=== PATIENT | male | born 1955 | race Caucasian/White ===

== ENCOUNTER 2022-03-21 08:26 | Emergency (ER) | payer OTHER, SELFPAY ==
[2022-03-21 09:25] VITALS: BP 178/89; PULSE 84; RESP 18; TEMP 37.2; O2SAT 95; BMI 25.0
--- NOTE | 2022-03-21 09:45 | ED_ITS ---
HPI - Back Pain/Injury General Chief Complaint: Back Pain/Injury Stated Complaint: Rt Lower Back Pain/Headache with rash Time Seen by Provider: 03/21/22 09:44 Source: patient and EMS Mode of arrival: EMS Limitations: no limitations History of Present Illness HPI Narrative: 66 yo male with history of substance abuse disorder on methadone who presents to the ER for evaluation of right-sided back pain that started 2 or 3 days ago. He reports yesterday he noticed a red, blistering rash that was on his right lower quadrant of his abdomen and on his right flank. It is burning and painful. He thinks he might have MRSA or shingles. MD elicited complaint: back pain Pertinent past history: prior back pain Onset (ago): day(s) (2) Timing: constant Severity: moderate Pain scale (0-10): 7 Quality: burning, aching and tingling Location: right flank and right lower back Radiation: abdomen Exacerbating factors: none Relieving factors: none Associated symptoms: denies other symptoms Work related injury: No Related Data Previous Rx's Medication Instructions Recorded gabapentin 100 mg capsule 100 mg PO BID PRN nerve pain #10 03/21/22 caps ibuprofen 600 mg tablet 600 mg PO Q8H PRN pain #20 tabs 03/21/22 valacyclovir 1 gram tablet 1,000 mg PO Q8H 7 days #21 tabs 03/21/22 Allergies Allergy/AdvReac Type Severity Reaction Status Date / Time No Known Allergies Allergy Verified 03/21/22 09:24 [No Known Allergies*] Review of Systems Review of Systems: Constitutional: No Fever, No Chills ENT/Mouth: No sore throat, No Rhinorrhea, No Swallowing Difficulty Eyes: No Eye Pain Cardiovascular: No Chest Pain, No SOB Gastrointestinal: No Nausea, No Vomiting, No Diarrhea, + abdominal Pain Musculoskeletal: +joint pain, + Myalgias Skin: No Skin Lesions, + rash Neuro: No Weakness, No Numbness, No Dizziness, No Headache Heme/Lymph: No Bruising, No Lymphadenopathy PMFSH Social History Social History Advance Directives: No Physical Exam Vital Signs: Vital Signs: Last Vital Signs Temp 99 F 03/21/22 09:25 Pulse 84 03/21/22 09:25 Resp 18 03/21/22 09:25 BP 178/89 H 03/21/22 09:25 Pulse Ox 95 03/21/22 09:25 O2 Del Method 03/21/22 09:25 BMI result Body Mass Index 25.0 Appearance: Alert. Oriented X3. No acute distress. HEENT: normal inspection CVS: Normal heart rate and rhythm. Pulses normal. Respiratory: No respiratory distress. Skin: Skin warm and dry. Normal skin color. Normal skin turgor. There is a erythematous vesciular & blistering patchy rash on the right middle back, right flank and right lower quadrant of the abdomen in a dermatomal distribution Extremities: normal inspection x4. Neuro: Oriented X 3. No motor deficit. No sensory deficit. ambluates with a cane, antalgic gait, baseline Course Course Course Narrative: 66-year-old male with history of substance abuse disorder on methadone, chronic pain who presents to the ER for evaluation of right-sided back pain that started 2 or 3 days ago, with acute onset of a burning, blistering rash on his right back, right flank and right lower portion of his abdomen. Examination and clinical presentation are consistent with herpes zoster. Will treat with valacyclovir 1000 mg q.8 hours x7 days. Will also give low-dose gabapentin for neuropathy pain. Patient is agreeable with plan. He is asking for his methadone dose, his clinic is open till 30 today. He was advised to go [facility] from here now. His sisters coming to get him and that he will sampler pickup his valacyclovir prescription. He is stable for discharge home. Discharge Plan Discharge Clinical Impression: Shingles Patient Disposition: Home, Self-Care Instructions: Shingles (ED) Additional Instructions: Take the prescribed antiviral medication as directed. Complete the entire course. Take the prescribed gabapentin as needed for nerve pain, this is common pain associated with shingles. If you develop new or worsening symptoms call 911 or come back to the ER for further evaluation. Prescriptions: New valacyclovir 1 gram tablet 1,000 mg PO Q8H 7 Days Qty: 21 0RF ibuprofen 600 mg tablet 600 mg PO Q8H PRN (Reason: pain) Qty: 20 0RF gabapentin 100 mg capsule 100 mg PO BID PRN (Reason: nerve pain) Qty: 10 0RF Interventions: ED Discharge Assessment Last Done: 03/21/22 10:01 Discharge Date/Time: 03/21/22 10:02
[2022-03-21] MEDS: valACYclovir HCL 1,000 MG TABLET 1000 MG PO (09:57)
[2022-03-21] MEDS: Ibuprofen 600 MG TABLET PO (09:57)
== END 2022-03-21 10:02 | disposition home or self-care (01) ==
PROVIDERS: Emergency Provider Emergency Medicine
DX: B02.9 Zoster without complications (principal); M54.50 Low back pain, unspecified; F11.20 Opioid dependence, uncomplicated
CPT/HCPCS: 99283

== ENCOUNTER 2022-06-16 08:40 | Emergency (ER) | payer OTHER, SELFPAY ==
--- NOTE | ~2022-06-16 | CT_ITS ---
EXAMINATION: CT LUMBAR SPINE WITH CONTRAST CLINICAL INFORMATION: Back pain. Left leg weakness. Rule out epidural abscess. COMPARISON: Lumbar spine MRI 04/24/2019. TECHNIQUE: CT of the lumbar spine was performed following the intravenous administration of 85 mL of Omnipaque 350. Multiplanar reformats were rendered and reviewed. This CT examination was performed using dose optimization techniques as appropriate, variously including the following: *Automated exposure control *Adjustment of mA and/or kV according to patient size (this includes techniques or standardized protocols for targeted exams where dose is matched to indication/reason for exam; i.e. extremities or head) *Use of iterative reconstruction technique DLP: 466 mGy-cm FINDINGS: The sequela of prior osteomyelitis is noted at L4-L5 with associated subchondral collapse of both vertebral bodies and ankylosis across the disc space. There is no evidence of acute fracture. Schmorl's nodes are seen at the inferior endplate of L3 and L1. There is severe disc height loss at L5-S1 with remaining disc heights preserved. No gross abnormal enhancement is seen within the spinal canal. No epidural collection is seen. There is no inflammatory stranding or collection within the soft tissues. Atheromatous changes are noted in the abdominal aorta and its branch vessels. There is a lipoma within the right psoas muscle. L1-L2: Disc bulging with facet arthropathy. No spinal canal or neural foraminal stenosis. L2-L3: Disc bulging with facet arthropathy and ligamentum flavum infolding resulting in mild to moderate spinal canal stenosis and subarticular stenosis. Mild neural foraminal stenosis. L3-L4: Disc bulging with facet arthropathy and ligamentum flavum infolding resulting in mild spinal canal stenosis. No significant neural foraminal stenosis. L4-L5: Subchondral collapse with posterior osteophytic ridging which, in combination with facet arthropathy and facet ankylosis results in severe right and moderate to severe left neural foraminal stenosis and moderate to severe spinal canal stenosis with subarticular stenosis. L5-S1: Disc bulging with osteophytic ridging and severe facet arthropathy. Mild spinal canal stenosis with right subarticular stenosis and mild to moderate left and moderate to severe right neural foraminal stenosis. CT/CT lumbar spine w IV con IMPRESSION: 1. Sequela of prior osteomyelitis at L4-L5 with ankylosis across the disc space and subchondral collapse of the vertebral bodies. No evidence of epidural collection. No inflammatory stranding or collection seen within the soft tissues. 2. Multilevel degenerative spondylotic changes resulting in varying degrees of spinal canal and neural foraminal stenosis. Spinal canal stenosis appears moderate to severe at L4-L5.
[2022-06-16 08:42] VITALS: BP 141/84; PULSE 80; RESP 18; TEMP 36.7; O2SAT 95; BMI 24.4
[2022-06-16 12:00] LABS: MANUAL DIFF FLAG NO
[2022-06-16 12:03] LABS: Basophils Percent Auto 0.5 % (0-2); Eosinophils Absolute Auto 0.1 X10*3/uL (0.0-0.4); Eosinophils Percent Auto 0.8 % (0-4); Hematocrit 43.7 % (42.0-52.0); Hemoglobin 13.9 g/dl (14.0-18.0); Imm Gran Abs Auto 0.02 X10*3/uL (0.00-0.03); Imm Gran Pct Auto 0.3 % (0.0-0.4); Lymphocytes Absolute Auto 1.5 X10*3/uL (1.2-4.9); Lymphocytes Percent Auto 19.9 % (20-40); Mean Corpuscular HGB Conc 31.8 g/dl (31.0-36.0); Mean Corpuscular Hemoglobin 25.4 pg (27.0-33.0); Mean Corpuscular Volume 79.9 fL (80.0-98.0); Mean Platelet Volume 10.2 fL (9.4-12.4); Monocytes Absolute Auto 0.7 X10*3/uL (0.1-1.2); Monocytes Percent Auto 9.6 % (2-11); Neutrophils Absolute Auto 5.3 x10*3/uL (2.0-8.3); Neutrophils Percent Auto 68.9 % (45-73); Platelet Count 272 X10*3/uL (160-400); Red Blood Count 5.47 X10*6/uL (4.60-5.80); White Blood Count 7.7 X10*3/uL (4.8-10.8)
[2022-06-16 12:24] LABS: Anion Gap 12 (12-20); Blood Urea Nitrogen 36 mg/dL (9-16); Calcium 9.5 mg/dL (8.4-10.2); Carbon Dioxide 27 mmol/L (22-29); Chloride 103 mmol/L (96-108); Creatinine Clr Calc Pharmacy 71.5; Estimated Glomerular Filt Rate > 60; Glucose Random 90 mg/dL (60-115); Potassium 5.3 mmol/L (3.3-5.1); Sodium 137 mmol/L (135-145)
[2022-06-16 12:35] LABS: COVID-19 Test Negative (Negative); IDNOW Serial# BCCEAD1C
[2022-06-16 12:44] LABS: Erythrocyte Sedimentation Rate 42 MM/HR (0-15)
[2022-06-16] MEDS: iohexoL 350 MG/ML 100 ML INFUS..BTL 85 ML IV (13:02)
[2022-06-16] MEDS: Acetaminophen 325 MG TABLET 650 MG PO (13:56)
[2022-06-16] MEDS: oxyCODONE HCl Immed Release 5 MG TABLET PO (13:56)
[2022-06-16 15:34] LABS: Potassium 4.8 mmol/L (3.3-5.1)
[2022-06-16] MEDS: cefTRIAXone sodium 1 GM in 0.9 % Sodium Chloride 50 ML IV (16:07)
--- NOTE | 2022-06-16 16:33 | PC.NURSE ---
MRI SCREENING FORM DONE AND FAXED
[2022-06-16] MEDS: HYDROmorphone HCl 1 MG/ML SYRINGE IVPUSH (17:54)
--- NOTE | 2022-06-16 18:35 | ED.BACK ---
HPI - Back Pain/Injury General Chief Complaint: Back Pain/Injury <LILLY Wise Last Filed: 06/16/22 18:46> Stated Complaint: Cellulitis? <LILLY Wise Last Filed: 06/16/22 18:46> Time Seen by Provider: 06/16/22 11:01 <LILLY Wise Last Filed: 06/16/22 18:46> History of Present Illness HPI Narrative: Patient complains of escalating back pain over past weeks gradually worsening, and over the last several weeks he has noticed that his left leg feels weaker and pain in tingling or shooting down into his left foot He is an IV daily drug user with a history of osteomyelitis in his back and a questionable history of diskitis He said after being in the hospital for treatment of those entities he came out with lots of pain on the right side and pain shooting into the right foot but over the last several weeks it is now shooting into the left foot He denies any injury he denies any incontinence he has no change to bowel or bladder he denies any fever <LILLY Wise Last Filed: 06/16/22 18:46> Related Data Home Medications: Previous Rx's Medication Instructions Recorded gabapentin 100 mg capsule 100 mg PO BID PRN nerve pain #10 03/21/22 caps ibuprofen 600 mg tablet 600 mg PO Q8H PRN pain #20 tabs 03/21/22 valacyclovir 1 gram tablet 1,000 mg PO Q8H 7 days #21 tabs 03/21/22 <LILLY Wise Last Filed: 06/16/22 18:46> Allergies/Adverse Reactions: Allergies Allergy/AdvReac Type Severity Reaction Status Date / Time No Known Allergies Allergy Verified 03/21/22 09:24 [No Known Allergies*] <LILLY Wise Last Filed: 06/16/22 18:46> Review of Systems Review of Systems: Positive for back pain radiating into both legs with new weakness in the left foot developing over many weeks Negatives are no fever no chills no dizziness weakness no fainting no feeling faint no falling no headache no neck pain no chest pain no shortness of breath no abdominal pain no changes to bowel or bladder no dysuria no incontinence no frequency no skin rash <LILLY Wise Last Filed: 06/16/22 18:46> Yes all other systems are reviewed and are negative <LILLY Wise - Last Filed: 06/16/22 18:46> [facility] Past Medical History Source: nursing notes reviewed <LILLY Wise - Last Filed: 06/16/22 18:46> Social History Social History: Social History Advance Directives: No Advance Directives Information Provided: No <LILLY Wise - Last Filed: 06/16/22 18:46> Physical Exam Vital Signs: Vital Signs: Last Vital Signs Temp 98.0 F 06/16/22 08:42 Pulse 80 06/16/22 08:42 Resp 18 06/16/22 08:42 BP 141/84 H 06/16/22 08:42 Pulse Ox 95 06/16/22 08:42 O2 Del Method 06/16/22 08:42 BMI result Body Mass Index 24.4 <LILLY Wise - Last Filed: 06/16/22 18:46> Vital Signs: Last Vital Signs Temp 98.0 F 06/16/22 08:42 Pulse 80 06/16/22 08:42 Resp 18 06/16/22 08:42 BP 141/84 H 06/16/22 08:42 Pulse Ox 95 06/16/22 08:42 O2 Del Method 06/16/22 08:42 BMI result Body Mass Index 24.4 <LILLY Jay - Last Filed: 06/16/22 19:10> General appearance is no acute distress, A&O x3 The head is normocephalic atraumatic Neck is supple nontender Chest clear to auscultation bilateral Heart no murmur The abdomen is soft nontender The back had diffuse lower lumbar tenderness worse on the left side The skin of the back was normal there was no redness no wounds no swelling Extremities no tenderness swelling or deformities Neuro the gait is a limping gait and he is seems to have a footdrop it hurts a lot to put weight on the foot and he was not able to bring the foot up fully on my exam, sensation was decreased on the left foot, he is A&O x3 and interaction comprehension and expression were normal <LILLY Wise Last Filed: 06/16/22 18:46> Course Course Course Narrative: Case was discussed with dr pinto with concern for could this be diskitis or epidural abscess He advised patient should have workup to rule out epidural abscess ESR and CRP were elevated A CT scan was done which showed multiple degenerative and arthritic problems but could not rule out epidural abscess So MRI was planned At 18:45 case is signed out to physician assistant women's soccer coach yosi to follow the results of the pending MRI and re-evaluate and dispo the patient <LILLY Wise - Last Filed: 06/16/22 18:46> Reevaluation(s) Reevaluation #1: I received to sign out from a LILLY Mayen. MRI was called in to obtain an MRI for patient however patient refusing MRI after they came in for MRI he states he is too uncomfortable, was offered pain medicine, Ativan, other medications as well however patient adamantly refusing and refusing an MRI stating he would like to leave. Explained to patient he would be leaving against medical advice and educated him on the risks associated with leaving against medical advice, I explained to him we are trying to rule out an abscess or other etiologies is as diskitis or osteomyelitis, patient verbalizes understanding of verbalizes risks is willing to leave against medical advice. He will sign paperwork to leave against medical advice educated to return if he changes his mind. At this time patient will be leaving against medical advice at time patient left refusing all further care, medications. <LILLY Jay - Last Filed: 06/16/22 19:10> Time: 19:08 <LILLY Jay - Last Filed: 06/16/22 19:10> Medications Administered Discontinued Medications Generic Name Dose Route Start Last Admin Trade Name Jim PRN Reason Stop Dose Admin Acetaminophen 650 mg 06/16/22 13:33 06/16/22 13:56 Acetaminophen 325 Mg Tablet PO 06/16/22 13:34 650 mg ONCE ONE Administration Hydromorphone HCl 1 mg 06/16/22 17:37 06/16/22 17:54 Hydromorphone Hcl 1 Mg/Ml Syringe IVPUSH 06/16/22 17:38 1 mg ONCE ONE Administration Protocol Ceftriaxone Sodium 1 gm/ 50 mls @ 100 mls/hr 06/16/22 14:33 06/16/22 16:07 Sodium Chloride IV 06/16/22 15:02 100 mls/hr ONCE ONE Administration Iohexol 85 ml 06/16/22 13:00 06/16/22 13:02 Iohexol 350 Mg/Ml 100 Ml Infus..Btl IV 06/16/22 13:01 85 ml ONCE ONE Administration Oxycodone HCl 5 mg 06/16/22 13:33 06/16/22 13:56 Oxycodone Hcl Immed Release 5 Mg Tablet PO 06/16/22 13:34 5 mg ONCE ONE Administration <LILLY Wise - Last Filed: 06/16/22 18:46> Medications Administered Discontinued Medications Generic Name Dose Route Start Last Admin Trade Name Jim PRN Reason Stop Dose Admin Acetaminophen 650 mg 06/16/22 13:33 06/16/22 13:56 Acetaminophen 325 Mg Tablet PO 06/16/22 13:34 650 mg ONCE ONE Administration Hydromorphone HCl 1 mg 06/16/22 17:37 06/16/22 17:54 Hydromorphone Hcl 1 Mg/Ml Syringe IVPUSH 06/16/22 17:38 1 mg ONCE ONE Administration Protocol Ceftriaxone Sodium 1 gm/ 50 mls @ 100 mls/hr 06/16/22 14:33 06/16/22 16:07 Sodium Chloride IV 06/16/22 15:02 100 mls/hr ONCE ONE Administration Iohexol 85 ml 06/16/22 13:00 06/16/22 13:02 Iohexol 350 Mg/Ml 100 Ml Infus..Btl IV 06/16/22 13:01 85 ml ONCE ONE Administration Oxycodone HCl 5 mg 06/16/22 13:33 06/16/22 13:56 Oxycodone Hcl Immed Release 5 Mg Tablet PO 06/16/22 13:34 5 mg ONCE ONE Administration <LILLY Jay - Last Filed: 06/16/22 19:10> Medical Decision Making Lab Data MDM Lab Attestation statement: I reviewed the patient's lab results. <LILLY Wise - Last Filed: 06/16/22 18:46> Result Diagrams: : 06/16/22 11:54 06/16/22 15:16 <LILLY Wise - Last Filed: 06/16/22 18:46> Labs: Lab Results 12/20/22 12/20/22 12/20/22 Range/Units 11:54 11:54 11:54 WBC 7.7 (4.8-10.8) X10*3/uL RBC 5.47 (4.60-5.80) X10*6/uL Hgb 13.9 L (14.0-18.0) g/dl Hct 43.7 (42.0-52.0) % MCV 79.9 L (80.0-98.0) fL MCH 25.4 L (27.0-33.0) pg MCHC 31.8 (31.0-36.0) g/dl RDW 17.0 H (11.0-16.0) % Plt Count 272 (160-400) X10*3/uL MPV 10.2 (9.4-12.4) fL Immature Gran % (Auto) 0.3 (0.0-0.4) % Neut % (Auto) 68.9 (45-73) % Lymph % (Auto) 19.9 L (20-40) % [place] % (Auto) 9.6 (2-11) % Eos % (Auto) 0.8 (0-4) % Baso % (Auto) 0.5 (0-2) % Lymph # (Auto) 1.5 (1.2-4.9) X10*3/uL [place] # (Auto) 0.7 (0.1-1.2) X10*3/uL Eos # (Auto) 0.1 (0.0-0.4) X10*3/uL Baso # (Auto) 0.0 (0.0-0.2) X10*3/uL Abs Immat Gran (auto) 0.02 (0.00-0.03) X10*3/uL Absolute Neuts (auto) 5.3 (2.0-8.3) x10*3/uL Absolute Nucleated RBC 0.000 (0.0-0.012) X10*3/uL Nucleated RBC % (auto) 0.0 (0.0-0.2) /100WBC ESR 42 H (0-15) MM/HR Sodium 137 (135-145) mmol/L Potassium 5.3 H (3.3-5.1) mmol/L Chloride 103 (96-108) mmol/L Carbon Dioxide 27 (22-29) mmol/L Anion Gap 12 (12-20) BUN 36 H (9-16) mg/dL Creatinine 1.07 (0.5-1.4) mg/dL Estim Creat Clear Calc 71.5 Estimated GFR > 60 Random Glucose 90 (60-115) mg/dL Calcium 9.5 (8.4-10.2) mg/dL C-Reactive Protein 2.50 H (< or = 0.50) mg/dL COVID-19 ([place]) (Negative) COVID-19 Clin Com 06/16/22 06/16/22 Range/Units 12:10 15:16 WBC (4.8-10.8) X10*3/uL RBC (4.60-5.80) X10*6/uL Hgb (14.0-18.0) g/dl Hct (42.0-52.0) % MCV (80.0-98.0) fL MCH (27.0-33.0) pg MCHC (31.0-36.0) g/dl RDW (11.0-16.0) % Plt Count (160-400) X10*3/uL MPV (9.4-12.4) fL Immature Gran % (Auto) (0.0-0.4) % Neut % (Auto) (45-73) % Lymph % (Auto) (20-40) % [place] % (Auto) (2-11) % Eos % (Auto) (0-4) % Baso % (Auto) (0-2) % Lymph # (Auto) (1.2-4.9) X10*3/uL [place] # (Auto) (0.1-1.2) X10*3/uL Eos # (Auto) (0.0-0.4) X10*3/uL Baso # (Auto) (0.0-0.2) X10*3/uL Abs Immat Gran (auto) (0.00-0.03) X10*3/uL Absolute Neuts (auto) (2.0-8.3) x10*3/uL Absolute Nucleated RBC (0.0-0.012) X10*3/uL Nucleated RBC % (auto) (0.0-0.2) /100WBC ESR (0-15) MM/HR Sodium (135-145) mmol/L Potassium 4.8 (3.3-5.1) mmol/L Chloride (96-108) mmol/L Carbon Dioxide (22-29) mmol/L Anion Gap (12-20) BUN (9-16) mg/dL Creatinine (0.5-1.4) mg/dL Estim Creat Clear Calc Estimated GFR Random Glucose (60-115) mg/dL Calcium (8.4-10.2) mg/dL C-Reactive Protein (< or = 0.50) mg/dL COVID-19 ([place]) Negative (Negative) COVID-19 Clin Com See Note <LILLY Wise - Last Filed: 06/16/22 18:46> Lab Results 06/16/22 06/16/22 06/16/22 Range/Units 11:54 11:54 11:54 WBC 7.7 (4.8-10.8) X10*3/uL RBC 5.47 (4.60-5.80) X10*6/uL Hgb 13.9 L (14.0-18.0) g/dl Hct 43.7 (42.0-52.0) % MCV 79.9 L (80.0-98.0) fL MCH 25.4 L (27.0-33.0) pg MCHC 31.8 (31.0-36.0) g/dl RDW 17.0 H (11.0-16.0) % Plt Count 272 (160-400) X10*3/uL MPV 10.2 (9.4-12.4) fL Immature Gran % (Auto) 0.3 (0.0-0.4) % Neut % (Auto) 68.9 (45-73) % Lymph % (Auto) 19.9 L (20-40) % [place] % (Auto) 9.6 (2-11) % Eos % (Auto) 0.8 (0-4) % Baso % (Auto) 0.5 (0-2) % Lymph # (Auto) 1.5 (1.2-4.9) X10*3/uL [place] # (Auto) 0.7 (0.1-1.2) X10*3/uL Eos # (Auto) 0.1 (0.0-0.4) X10*3/uL Baso # (Auto) 0.0 (0.0-0.2) X10*3/uL Abs Immat Gran (auto) 0.02 (0.00-0.03) X10*3/uL Absolute Neuts (auto) 5.3 (2.0-8.3) x10*3/uL Absolute Nucleated RBC 0.000 (0.0-0.012) X10*3/uL Nucleated RBC % (auto) 0.0 (0.0-0.2) /100WBC ESR 42 H (0-15) MM/HR Sodium 137 (135-145) mmol/L Potassium 5.3 H (3.3-5.1) mmol/L Chloride 103 (96-108) mmol/L Carbon Dioxide 27 (22-29) mmol/L Anion Gap 12 (12-20) BUN 36 H (9-16) mg/dL Creatinine 1.07 (0.5-1.4) mg/dL Estim Creat Clear Calc 71.5 Estimated GFR > 60 Random Glucose 90 (60-115) mg/dL Calcium 9.5 (8.4-10.2) mg/dL C-Reactive Protein 2.50 H (< or = 0.50) mg/dL COVID-19 ([place]) (Negative) COVID-19 Clin Com 06/16/22 06/16/22 Range/Units 12:10 15:16 WBC (4.8-10.8) X10*3/uL RBC (4.60-5.80) X10*6/uL Hgb (14.0-18.0) g/dl Hct (42.0-52.0) % MCV (80.0-98.0) fL MCH (27.0-33.0) pg MCHC (31.0-36.0) g/dl RDW (11.0-16.0) % Plt Count (160-400) X10*3/uL MPV (9.4-12.4) fL Immature Gran % (Auto) (0.0-0.4) % Neut % (Auto) (45-73) % Lymph % (Auto) (20-40) % [place] % (Auto) (2-11) % Eos % (Auto) (0-4) % Baso % (Auto) (0-2) % Lymph # (Auto) (1.2-4.9) X10*3/uL [place] # (Auto) (0.1-1.2) X10*3/uL Eos # (Auto) (0.0-0.4) X10*3/uL Baso # (Auto) (0.0-0.2) X10*3/uL Abs Immat Gran (auto) (0.00-0.03) X10*3/uL Absolute Neuts (auto) (2.0-8.3) x10*3/uL Absolute Nucleated RBC (0.0-0.012) X10*3/uL Nucleated RBC % (auto) (0.0-0.2) /100WBC ESR (0-15) MM/HR Sodium (135-145) mmol/L Potassium 4.8 (3.3-5.1) mmol/L Chloride (96-108) mmol/L Carbon Dioxide (22-29) mmol/L Anion Gap (12-20) BUN (9-16) mg/dL Creatinine (0.5-1.4) mg/dL Estim Creat Clear Calc Estimated GFR Random Glucose (60-115) mg/dL Calcium (8.4-10.2) mg/dL C-Reactive Protein (< or = 0.50) mg/dL COVID-19 ([place]) Negative (Negative) COVID-19 Clin Com See Note <LILLY Jay - Last Filed: 06/16/22 19:10> Discharge Plan Discharge Clinical Impression: Back pain, Left against medical advice <LILLY Wise - Last Filed: 06/16/22 18:46> Patient Disposition: Left Against Medical Advice <LILLY Wise - Last Filed: 06/16/22 18:46> Instructions: Back Pain (ED), Against Medical Advice (ED) <LILLY Wise - Last Filed: 06/16/22 18:46> Additional Instructions: Take your medications as prescribed. If you were prescribed antibiotics today, it is important that you take your medication to their entirety, do not skip any doses, do not finish them early. Follow-up with your primary care provider this week. Return to the emergency department with new or worsening symptoms. Such as fevers, chills, chest pain, shortness of breath, nausea, vomiting, dizziness, headache, vision changes, lethargy In case of emergency call 911 You are leaving against medical advice meaning your willing to take the risks as discussed in the department worsening symptoms, , disability, decreased quality of life, infection, pain. If you change your mind please come back the hospital <LILLY Wise - Last Filed: 06/16/22 18:46> Prescriptions: No Action valacyclovir 1 gram tablet 1,000 mg PO Q8H 7 Days Qty: 21 0RF ibuprofen 600 mg tablet 600 mg PO Q8H PRN (Reason: pain) Qty: 20 0RF gabapentin 100 mg capsule 100 mg PO BID PRN (Reason: nerve pain) Qty: 10 0RF <LILLY Wise - Last Filed: 06/16/22 18:46> Referrals: Physician,None [Primary Care Provider] - 1 day <LILLY Wise - Last Filed: 06/16/22 18:46> Stand Alone Forms: Against Medical Advice <LILLY Wise - Last Filed: 06/16/22 18:46>
--- NOTE | 2022-06-16 18:46 | PC.NURSE ---
Given turkey sandwich, cheese stick, applesauce, and milk. Aware of plan to wait for MRI.
--- NOTE | 2022-06-16 19:09 | PC.NURSE ---
Pt was brought to MRI to have MRI completed. MRI called this RN in [facility] stating that patient is refusing MRI due to being in pain/uncomfortable. Spoke with LILLY Dobbs. Pt was offered additional pain or anxiety medication to complete MRI, pt continued to refuse. Pt leaving against medical advice.
[2022-06-16 19:27] VITALS: BP 142/88; PULSE 84; RESP 19; TEMP 36.7; O2SAT 95
== END 2022-06-16 19:34 | disposition left against medical advice (07) ==
PROVIDERS: Physician Assistant Medical; Emergency Provider Emergency Medicine Emergency Medical Services
DX: M54.50 Low back pain, unspecified (principal); Z20.822 Contact with and (suspected) exposure to COVID-19
CPT/HCPCS: 36415; 72132; 80048; 84132; 85025; 85652; 86140; 87040; 87635; 96374; 96375; 99284; J0696; J1170; Q9967

== ENCOUNTER 2023-08-24 13:20 | Emergency (ER) | payer OTHER, SELFPAY ==
--- NOTE | ~2023-08-24 | US_ITS ---
EXAMINATION: US RIGHT FOREARM WITH DOPPLER UPPER EXTREMITY CLINICAL INFORMATION: Abscess versus DVT right anterior forearm. COMPARISON: None available. TECHNIQUE: Ultrasound of the upper extremity right forearm was performed. It should be noted that a DVT study of the right upper extremity was not performed as part of this exam. Only the area indicated by the patient was studied. FINDINGS: Some soft tissue swelling is seen in the area of clinical concern but a discrete fluid collection or abscess is not identified. US/US extremity nonvascular mccormack IMPRESSION: There is soft tissue swelling but no discrete abscess seen. Of note, this is not a DVT study. If exclusion of right upper extremity DVT is clinically necessary, a right upper extremity DVT exam is recommended for further evaluation.
[2023-08-24 13:47] VITALS: BP 152/105; PULSE 77; RESP 20; TEMP 37.1; O2SAT 100; BMI 23.7
--- NOTE | 2023-08-24 13:48 | ED.GENADULT ---
HPI - General Adult General Chief complaint: Skin/Abscess/Foreign Body Stated complaint: abscess r arm Related Data Previous Rx's Medication Instructions Recorded gabapentin 100 mg capsule 100 mg PO BID PRN nerve pain #10 03/21/22 caps ibuprofen 600 mg tablet 600 mg PO Q8H PRN pain #20 tabs 03/21/22 valacyclovir 1 gram tablet 1,000 mg PO Q8H 7 days #21 tabs 03/21/22 Allergies Allergy/AdvReac Type Severity Reaction Status Date / Time No Known Allergies Allergy Verified 08/24/23 13:52 [No Known Allergies*] PMF Social History Social History Advance Directives: No Advance Directives Information Provided: No Physical Exam ED Vital Signs: BMI result Body Mass Index 23.7 Course Course Course Narrative: This is a rapid medical exam: Additional HPI, ROS, PE not included below will be deferred to primary provider. Patient is a 68-year-old male presenting to the ED with concern of abscess to right forearm for past 3 weeks. Also complains of numbness to right forearm and hand. States he injects into the affected area but has avoided that area since he noted the swelling. Denies drainage from area of concern but reports clear drainage from wound to dorsal distal forearm. Denies fevers. Plan: labs, U/S Medical Decision Making Lab Data 08/24/23 14:27 08/24/23 14:27 Labs: Lab Results 08/24/23 Range/Units 14:27 WBC 7.6 (4.8-10.8) X10*3/uL RBC 4.75 (4.60-5.80) X10*6/uL Hgb 11.8 L (14.0-18.0) g/dl Hct 37.4 L (42.0-52.0) % MCV 78.7 L (80.0-98.0) fL MCH 24.8 L (27.0-33.0) pg MCHC 31.6 (31.0-36.0) g/dl RDW 16.9 H (11.0-16.0) % Plt Count 299 (160-400) X10*3/uL MPV 10.3 (9.4-12.4) fL Immature Gran % (Auto) 0.3 (0.0-0.4) % Neut % (Auto) 60.9 (45-73) % Lymph % (Auto) 23.6 (20-40) % [place] % (Auto) 11.5 H (2-11) % Eos % (Auto) 2.9 (0-4) % Baso % (Auto) 0.8 (0-2) % Lymph # (Auto) 1.8 (1.2-4.9) X10*3/uL [place] # (Auto) 0.9 (0.1-1.2) X10*3/uL Eos # (Auto) 0.2 (0.0-0.4) X10*3/uL Baso # (Auto) 0.1 (0.0-0.2) X10*3/uL Abs Immat Gran (auto) 0.02 (0.00-0.03) X10*3/uL Absolute Neuts (auto) 4.7 (2.0-8.3) x10*3/uL Absolute Nucleated RBC 0.000 (0.0-0.012) X10*3/uL Nucleated RBC % (auto) 0.0 (0.0-0.2) /100WBC Sodium 138 (135-145) mmol/L Potassium 5.4 H (3.3-5.1) mmol/L Chloride 103 (96-108) mmol/L Carbon Dioxide 30 H (22-29) mmol/L Anion Gap 10 L (12-20) BUN 39 H (9-16) mg/dL Creatinine 1.33 (0.5-1.4) mg/dL Estim Creat Clear Calc 58.4 Estimated GFR 53 Random Glucose 93 (60-115) mg/dL Calcium 9.4 (8.4-10.2) mg/dL Total Bilirubin 0.3 (0.0-1.0) mg/dL AST 31 (5-37) U/L ALT 27 (0-40) U/L Alkaline Phosphatase 121 H (39-117) U/L Total Protein 7.7 (6.5-8.0) g/dL Albumin 3.5 (3.5-5.0) g/dL Discharge Plan Discharge Clinical Impression: Diagnosis unknown Patient Disposition: Left W/O Completing Treatment Prescriptions: No Action valacyclovir 1 gram tablet 1,000 mg PO Q8H 7 Days Qty: 21 0RF ibuprofen 600 mg tablet 600 mg PO Q8H PRN (Reason: pain) Qty: 20 0RF gabapentin 100 mg capsule 100 mg PO BID PRN (Reason: nerve pain) Qty: 10 0RF Discharge Date/Time: 08/24/23 15:23
[2023-08-24 14:32] LABS: MANUAL DIFF FLAG NO
[2023-08-24 14:38] LABS: Basophils Absolute Auto 0.1 X10*3/uL (0.0-0.2); Basophils Percent Auto 0.8 % (0-2); Eosinophils Absolute Auto 0.2 X10*3/uL (0.0-0.4); Eosinophils Percent Auto 2.9 % (0-4); Hematocrit 37.4 % (42.0-52.0); Hemoglobin 11.8 g/dl (14.0-18.0); Imm Gran Abs Auto 0.02 X10*3/uL (0.00-0.03); Imm Gran Pct Auto 0.3 % (0.0-0.4); Lymphocytes Absolute Auto 1.8 X10*3/uL (1.2-4.9); Lymphocytes Percent Auto 23.6 % (20-40); Mean Corpuscular HGB Conc 31.6 g/dl (31.0-36.0); Mean Corpuscular Hemoglobin 24.8 pg (27.0-33.0); Mean Corpuscular Volume 78.7 fL (80.0-98.0); Mean Platelet Volume 10.3 fL (9.4-12.4); Monocytes Absolute Auto 0.9 X10*3/uL (0.1-1.2); Monocytes Percent Auto 11.5 % (2-11); Neutrophils Absolute Auto 4.7 x10*3/uL (2.0-8.3); Neutrophils Percent Auto 60.9 % (45-73); Platelet Count 299 X10*3/uL (160-400); Red Blood Count 4.75 X10*6/uL (4.60-5.80); Red Cell Distribution Width 16.9 % (11.0-16.0); White Blood Count 7.6 X10*3/uL (4.8-10.8)
[2023-08-24 14:50] LABS: Alanine Aminotransferase 27 U/L (0-40); Albumin Level 3.5 g/dL (3.5-5.0); Alkaline Phosphatase 121 U/L (39-117); Anion Gap 10 (12-20); Aspartate Amino Transferase 31 U/L (5-37); Bilirubin Total 0.3 mg/dL (0.0-1.0); Blood Urea Nitrogen 39 mg/dL (9-16); Calcium 9.4 mg/dL (8.4-10.2); Carbon Dioxide 30 mmol/L (22-29); Chloride 103 mmol/L (96-108); Creatinine Clr Calc Pharmacy 58.4; Estimated Glomerular Filt Rate 53; Glucose Random 93 mg/dL (60-115); Potassium 5.4 mmol/L (3.3-5.1); Sodium 138 mmol/L (135-145); Total Protein 7.7 g/dL (6.5-8.0)
== END 2023-08-24 15:23 | disposition left against medical advice (07) ==
LOC: HO.ED 15:21
PROVIDERS: Registered Nurse Emergency; Emergency Provider Emergency Medicine
DX: L02.413 Cutaneous abscess of right upper limb (principal); M79.631 Pain in right forearm; R22.31 Localized swelling, mass and lump, right upper limb; Z79.899 Other long term (current) drug therapy
CPT/HCPCS: 36415; 76882; 80053; 85025; 93971; 99281; 99284

== ENCOUNTER 2024-01-26 09:38 | Outpatient (AMB) | payer OTHER, SELFPAY ==
--- NOTE | 2024-01-26 09:53 | AM.OFFWIN_ITS ---
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 ? Cerumen impacted Patient Tobacco Use Status: Current everyday Tobacco user Allergies No Known Allergies [No Known Allergies*] Allergy (Verified 01/26/24 09:53) Do you need a note to return to daycare/school/sports/work: No HPI HPI Comments History of Present Illness Details Patient presents to office with ear blockage Ongoing x 1 week Never had ears cleaned before No pain, 0/10 No discharge No URI symptoms No other complaints No improving or worsening factors PFSH Social History Patient Tobacco Use Status: Current everyday Tobacco user Review of Systems Const Denies chills and Denies fever(s) ENT Denies otalgia (blocked ears), Denies nasal discharge and Denies sore throat Resp Denies cough Physical Exam Vital Signs: Last Vital Signs Temp 98.4 F 01/26/24 09:54 Pulse 76 01/26/24 09:54 BP 168/96 H 01/26/24 09:54 Pulse Ox 97 01/26/24 09:54 Oxygen Delivery Method Room Air 01/26/24 09:54 BMI result Body Mass Index 23.6 General: Non-toxic, NAD. Speaking full sentences. Skin: Warm dry throughout Eye: EOMI HENT: Airway patent. Uvula midline. No pharyngeal erythema or edema. 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 Bilateral canals + cerumen R>L Respiratory: No respiratory distress MSK: Full ROM extremities. Neurology: A/O. No aphasia or facial droop. Gait without abnormality Psych: Good mood and affect Office Procedures Cerumen Removal From which ear canal was the cerumen removed: bilateral Removal: irrigation Notes: patient tolerated procedure well, no complications and ear canal clear [id number] Irrigation/Lavage Assessment & Plan Assessment & Plan (1) Cerumen impaction: Code(s): H61.20 - Impacted cerumen, unspecified ear Qualifiers: Laterality: bilateral Qualified Code(s): H61.23 - Impacted cerumen, bilateral Plan: Pt seen and evaluated Canal clear and tms without erythema bulging or perforation post procedure Discussed s/s that warrant call to office All questions answered at time of discharge Medications: Discontinued gabapentin Discontinued Reason: Patient Completed Course 100 mg PO BID PRN 10 caps 0RF nerve pain valacyclovir Discontinued Reason: Patient Completed Course 1,000 mg PO Q8H 7 days 21 tabs 0RF ibuprofen Discontinued Reason: Patient Completed Course 600 mg PO Q8H PRN 20 tabs 0RF pain Coding Level of Care Code Est Pt Level 3 (28949) Diagnoses Bilateral impacted cerumen H61.23 Laterality: bilateral CPT Codes Office Procedure - CPT: 31385-[id number] Irrigation/Lavage ([id number])
[2024-01-26 09:54] VITALS: BP 168/96; PULSE 76; TEMP 36.9; O2SAT 97; BMI 23.6
== END 2024-01-26 11:00 | disposition home or self-care (01) ==
PROVIDERS: Visit Provider Physician Assistant
DX: H61.23 Impacted cerumen, bilateral (principal)
CPT/HCPCS: 69209; 99213

== ENCOUNTER 2024-04-15 08:48 | Emergency (ER) | payer OTHER, SELFPAY ==
--- NOTE | ~2024-04-15 | XR_ITS ---
EXAMINATION: XR SHOULDER, LEFT CLINICAL INFORMATION: Fall. Pain. COMPARISON: Chest radiograph 08/09/2010. TECHNIQUE: Three views of the left shoulder. FINDINGS: Comminuted minimally displaced fracture of the left humeral neck extending to the greater tuberosity. Mild superior displacement of the humeral head with respect to the glenoid. 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 Calcific densities adjacent to the greater tuberosity. Visualized left hemithorax within normal limits. Suspect small joint effusion as well as surrounding soft tissue hematoma around the humeral fracture. XR/XR shoulder LT min 2V IMPRESSION: 1. Comminuted minimally displaced fracture of the left humeral neck extending to the greater tuberosity. 2. Mild superior displacement of the humeral head with respect to the glenoid. 3. Joint effusion and soft tissue hematoma. Electronically signed by: Orquidea Rae MD 04/15/2024 09:23 AM EDT
--- NOTE | ~2024-04-15 | CT_ITS ---
EXAMINATION: CT HEAD WITHOUT CONTRAST CT CERVICAL SPINE WITHOUT CONTRAST CLINICAL INFORMATION: Fall. COMPARISON: CT head and cervical spine 09/18/2019. TECHNIQUE: Contiguous axial imaging was performed from the skull base to vertex without intravenous administration of contrast. Contiguous axial imaging was performed from the upper chest through the skull base without intravenous administration of contrast. Coronal and sagittal reformats were obtained at the acquisition workstation. This CT examination was performed using dose optimization techniques as appropriate, variously including the following: *Automated exposure control *Adjustment of mA and/or kV according to patient size (this includes techniques or standardized protocols for targeted exams where dose is matched to indication/reason for exam; i.e. extremities or head) *Use of iterative reconstruction technique DLP: 1194 mGy-cm FINDINGS: Head: Age indeterminate lacunar infarcts in the bilateral basal ganglia. There is no evidence of acute intracranial hemorrhage or edematous territorial infarction. Scattered hypoattenuation in the periventricular and deep white matter are consistent with moderate microangiopathy. Stone-white matter differentiation is preserved. Proportional prominence of the ventricles and sulcal spaces. No evidence for obstructive hydrocephalus. No abnormal mass effect or midline shift. No extra-axial fluid collections. No acute soft tissue or osseous abnormalities. Mucosal thickening and inspissated secretions in the left maxillary sinus. Other paranasal sinuses, mastoids and middle ear cavities are clear. Cervical Spine: The atlantooccipital and atlantoaxial articulations remain well aligned. Unchanged grade 1 anterolisthesis at C4-C5. Stable and vertebral body height loss at C4. Chronic ankylosis of the C5-C6 vertebral bodies. No acute compression deformity or subluxation. Chronic severe cervical spondylosis with intervertebral disc height loss, facet/uncal hypertrophy and very large anterior marginal osteophytes leading to multilevel neural foraminal encroachment and central canal stenosis. Of note, CT is insensitive for the evaluation of the central spinal canal in the absence of intrathecal contrast. There is no prevertebral soft tissue swelling. The thyroid gland and remaining cervical soft tissues are normal in appearance. The lung apices demonstrate no abnormalities. CT/CT cervical spine wo IV con IMPRESSION: 1. No acute intracranial pathology. 2. 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 3. 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 4. No acute cervical spinal fractures or malalignment. 5. Severe cervical spondylosis with multilevel neural foraminal encroachment and central canal stenosis. 6. Chronic anterolisthesis at C4-C5 and chronic vertebral body fusion at C5-C6. 7. Paranasal sinus disease in the left maxillary sinus, correlate clinically. Electronically signed by: Orquidea Rae MD 04/15/2024 11:42 AM EDT
[2024-04-15 08:53] VITALS: BP 156/72; PULSE 66; RESP 20; TEMP 36.1; O2SAT 99; BMI 25.8
--- NOTE | 2024-04-15 09:11 | PC.NURSE ---
pt to radiology
--- NOTE | 2024-04-15 09:28 | ED.EXTPRO ---
HPI - Extremity Problem General Chief complaint: Extremity Injury, Upper Stated complaint: fall Time Seen by Provider: 04/15/24 09:01 Source: patient and RN notes reviewed Mode of arrival: ambulatory Limitations: no limitations History of Present Illness ED Provider: Cristine Ulloa PA-C HPI Narrative: This is a 68-year-old male, with a history of substance abuse on methadone, who presents emergency department with complaints of left shoulder pain status post fall out of bed which occurred at 2:30 a.m. this morning. Patient states that he got up to use the restroom when suddenly he slipped on his slippery wooden floors and landed directly onto his left shoulder. He is unsure if he hit his head. He denies loss of consciousness. He was on the ground for approximately 2 hours as he did not want to wake up his sister in the middle of the night. Denies any headaches, dizziness, blurred vision, double vision, chest pain, shortness for breath, abdominal pain, nausea, vomiting or diarrhea. He states that the only pain he is experiencing is in his left shoulder. He states that he took ?dope? prior to his arrival to help with the pain, denies taking any pain medications. He is currently on methadone, last received his dose this morning. Denies any other complaints or concerns at this time. MD Complaint: extremity pain Onset (ago): hour(s) Pain Consistency: constant Location: left and upper extremity Quality: aching Radiation: distal Relieving factors: immobilization and rest Exacerbating factors: range of motion and palpation Associated symptoms: denies other symptoms Related Data Previous Rx's ?Medication ?Instructions ?Recorded acetaminophen 500 mg tablet 1,000 mg (2 x 500 mg) PO Q8H PRN 04/15/24 (Tylenol Extra Strength) pain #30 tabs Allergies Allergy/AdvReac Type Severity Reaction Status Date / Time No Known Allergies Allergy Verified 04/15/24 08:54 [No Known Allergies*] Review of Systems Review of Systems: Yes all other systems are reviewed and are negative Constitutional: Constitutional: Reports as per [facility] Social History Social History Patient Tobacco Use Status: Current everyday Tobacco user Advance Directives: No Advance Directives Information Provided: No Do you have a plan to hurt others: No Plan Physical Exam Vital Signs: Vital Signs: Last Vital Signs Temp 97.3 F 04/15/24 12:15 Pulse 68 04/15/24 12:15 Resp 20 04/15/24 12:15 BP 158/68 H 04/15/24 12:15 Pulse Ox 98 04/15/24 12:15 O2 Del Method Room Air 04/15/24 12:15 BMI result Body Mass Index 25.8 Const: General: cooperative, comfortable and no acute distress Orientation/consciousness: patient oriented x3 Limitations: no limitations HEENT: Head: Yes normal to inspection, Yes normocephalic, Yes atraumatic, No Rasheed's sign, No hematoma, No laceration and No raccoon eyes Ears: hearing grossly normal bilaterally and TM's normal bilaterally General nose exam: Normal external nose present Face and sinus: Yes normal facial exam Mouth: Normal oral and palatal mucosa present, oropharynx normal and moist mucous membranes Throat: Yes posterior oropharynx normal Eyes: General: appearance normal, both eyes and all related structures Eyelids: Yes eyelids normal Conjunctivae: conjunctivae normal Sclerae: sclerae normal Pupils: Equal, round and reactive pupils present EOM: EOMs intact bilaterally Neck: Other: No midline C-spine tenderness on examination, Neck: Yes normal visual inspection, Yes full ROM and Yes no lymphadenopathy Lymphatic: no lymphadenopathy noted Chest: Chest palpation & inspection: normal inspection of the chest Resp: Effort & Inspection: normal respiratory effort and able to speak in complete sentences Auscultation: clear to auscultation bilaterally, no crackles, no rales, no rhonchi and no wheezes Cardio: Rate: regular rate Rhythm: regular rhythm Heart sounds: S1 normal heart sound present and S2 normal heart sound present GI: Inspection: Yes normal to inspection Skin: General skin exam: no rashes or lesions noted Trauma: no lacerations or abrasions Wounds: no wounds Neuro: General: patient oriented x3 and moves all extremities Cranial nerves: Yes Equal, round and reactive pupils present Extrem: Other: Left shoulder with no obvious bony deformity or swelling. He has exquisite tenderness palpation along the humeral head. Able to flex and extend at the elbow, and wrist, strong radial pulse, sensation and circulation intact. Unable to abduct shoulder as well as forward flex his shoulder secondary to pain. No open wounds or lacerations. General: Yes normal to inspection Right upper extremity: normal to inspection Left upper extremity: normal to inspection Right lower extremity: normal to inspection Left lower extremity: normal to inspection Medications Administered Discontinued Medications Generic Name Dose Route Start Last Admin Trade Name Jim PRN Reason Stop Dose Admin Acetaminophen 975 mg 04/15/24 09:38 04/15/24 09:43 Acetaminophen 325 Mg Tablet PO 04/15/24 09:39 975 mg ONCE ONE Administration Medical Decision Making Medical Decision Making [facility] Narrative: This is a 68-year-old male who presents emergency department complaints of left shoulder pain status post fall out of bed which occurred this morning. On arrival, vital signs within normal limits. He is speaking in full sentences under no acute distress. Head is normocephalic atraumatic. He has exquisite tenderness palpation along the humeral head with decreased range of motion secondary to pain. Differential diagnoses include fracture, dislocation, sprain, strain. X-ray was ordered prior to my assessment, which was read as a comminuted mental bleed displaced fracture of the left humeral neck extending to the greater tuberosity. There is a mild superior displacement of the humeral head with respect to the glenoid. Joint effusion and soft tissue hematoma also noted. Discussed this with medical language specialist, Luciano Martin PA-C who recommends shoulder immobilizer. Patient placed in sodium immobilizer. Given age as well as uncertainty of head strike, a head CT and cervical spine CT was ordered by me. He is not on anticoagulation. His CT of his head reveals no acute intracranial pathology. There are age-indeterminate lacunar infarcts in the bilateral basal ganglia - discussed with patient and sister at bedside. Also chronic degenerative changes seen in the neck. Discussed strict return precautions as well as given orthopedic referral. He was discharged on ibuprofen and Tylenol. He understands and agrees with plan. Patient stable for discharge Differential Diagnosis Differential Diagnoses: The differential diagnosis associated with the presentation includes See above; ICH, SDH, closed head injury, C-spine fracture-unlikely Admission/Observation Consideration of admission/observation: Escalation of care including admission/observation considered Escalation of care including admission/observation considered however given workup today not warranted at this time. Consult Healthcare Provider Management of the patient was discussed with: Paint Process Engineer Luciano Martin PA-C Independent Interpretation I performed an independent interpretation of an: Plain X-Ray Interpretation: I reviewed the x-ray and agree with the radiology report. Radiology Impression Discussion of test interpretation with radiology: I have reviewed the radiologist's reading. Radiologist Impression: CT/CT head/brain wo IV con IMPRESSION: 1. No acute intracranial pathology. 2. 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 3. 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 4. No acute cervical spinal fractures or malalignment. 5. Severe cervical spondylosis with multilevel neural foraminal encroachment and central canal stenosis. 6. Chronic anterolisthesis at C4-C5 and chronic vertebral body fusion at C5-C6. 7. Paranasal sinus disease in the left maxillary sinus, correlate clinically. Electronically signed by: Orquidea Rae MD 04/15/2024 11:42 AM EDT RP Dictated By: Orquidea Rae XR/XR shoulder LT min 2V IMPRESSION: 1. Comminuted minimally displaced fracture of the left humeral neck extending to the greater tuberosity. 2. Mild superior displacement of the humeral head with respect to the glenoid. 3. Joint effusion and soft tissue hematoma. Electronically signed by: Orquidea Rae MD 04/15/2024 09:23 AM EDT RP Dictated By: Orquidea Rae Discharge Plan Discharge Clinical Impression: Fracture of neck of humerus Patient Disposition: Home, Self-Care Instructions: Arm Fracture in Adults (ED) Additional Instructions: In the emergency department after fracture your x-ray revealed a fracture in the left humeral neck (upper arm/shoulder). Please wear sling 24/7 for comfort until you follow-up with the medical language specialist. May take Tylenol as needed for pain. Rest, ice, can also help. If any new or worsening symptoms occur including but not limited to worsening pain, swelling, severe headache, dizziness, chest pain, shortness of breath, please seek emergent care Prescriptions: New acetaminophen [Tylenol Extra Strength] 500 mg tablet 1,000 mg PO Q8H PRN (Reason: pain) Qty: 30 0RF Referrals: [facility] [place] [facility] [Provider Group] Interventions: ED Discharge Assessment Last Done: 04/15/24 12:15 Discharge Date/Time: 04/15/24 12:16 Print Language: Tamazight
[2024-04-15] MEDS: Acetaminophen 325 MG TABLET 975 MG PO (09:43)
--- NOTE | 2024-04-15 09:44 | PC.NURSE ---
pt a&ox3 c.o 04/06 lt shoulder pain with movement
--- NOTE | 2024-04-15 12:14 | PC.NURSE ---
sling applied to LUE
[2024-04-15 12:15] VITALS: BP 158/68; PULSE 68; RESP 20; TEMP 36.3; O2SAT 98
== END 2024-04-15 12:16 | disposition home or self-care (01) ==
PROVIDERS: Emergency Provider Emergency Medicine; PCP Physician Assistant
DX: S42.212A Unspecified displaced fracture of surgical neck of left humerus, initial encounter for closed fracture (principal); W01.198A Fall on same level from slipping, tripping and stumbling with subsequent striking against other object, initial encounter; Y93.89 Activity, other specified; Y92.013 Bedroom of single-family (private) house as the place of occurrence of the external cause; Y99.9 Unspecified external cause status
CPT/HCPCS: 70450; 72125; 73030; 99283; 99284

== ENCOUNTER 2024-04-25 13:04 | Outpatient (REF) | payer OTHER, SELFPAY | END 2024-04-25 13:05 | disposition home or self-care (01) | LOC: HO.HOSX 13:04 | PROVIDERS: Visit Provider Physician Assistant | DX: M25.512 Pain in left shoulder (principal); S42.202A Unspecified fracture of upper end of left humerus, initial encounter for closed fracture | CPT/HCPCS: 73030; 99202 ==

== ENCOUNTER 2024-04-25 14:06 | Outpatient (AMB) | payer OTHER, SELFPAY ==
--- NOTE | 2024-04-25 14:21 | MHC.OFFVIS ---
Intake Visit Reasons: FC - left humeral neck fx, DOI 04/15/24 Intake Note: Charles is a 68 year right hand dominant old male who presents today for a evaluation of his left shoulder pain, DOI 04/15/24. Patient reports falling out of bed and landing on his left shoulder. Patient reports his pain is a 9-10 out of 10 on the pain scale. Patient is taking methadone 60 mg from a clinic he goes to as well. Allergies No Known Allergies [No Known Allergies*] Allergy (Verified 04/25/24 14:26) HPI HPI FC - left humeral neck fx, DOI 04/15/24: Details: 68-year-old right hand dominant male who presents in the office today, as a new patient, for an evaluation of a left humeral neck fracture. The patient presented to the ED on 04/15/24 status post a fall around 2:30 AM in the morning. The patient woke up to use the restroom; suddenly he slipped on the wooden floors and landed directly on his left shoulder. He was on the floor for approximately 2 hours because he did not want to wake up his sister in the middle of the night. X-rays of the left shoulder were obtained. He was provided with a sling and prescribed acetaminophen 1000 mg Q8H PRN for pain. He was recommended resting and icing the injured area to aid with pain. While in the office today, the patient reports ongoing left shoulder pain. He states he fell out of bed and landed on his left shoulder. He rates his pain a 9-10/10 on the pain scale. The patient has a history of substance use on methadone 60 mg from a clinic he visits. [facility] Social History (Updated 04/25/24 @ 14:29 by Nishant Tilley) Alcohol intake: current Alcohol intake frequency: holidays/special occasions only Patient Tobacco Use Status: Current everyday Tobacco user Cigarette Packs Per Day: 1 Current occupational status: retired and disabled Current occupation: right hand dominant Review of Systems Const All systems reviewed & are unremarkable except as noted in HPI and below Physical Exam Const General: cooperative and no acute distress Orientation/consciousness: patient oriented x3 Resp Effort & Inspection: normal respiratory effort and able to speak in complete sentences Cardio Peripheral pulses: Peripheral pulses 2+ throughout Skin General skin exam: no rashes or lesions noted Neuro General: patient oriented x3 Extrem Other: Left upper extremity: Scattered ecchymosis along the bicep from the left shoulder to the left elbow. Full range of motion of the elbow, hand and wrist. Able to perform wrist flexion and extension. Able to perform thumbs up finger abduction and adduction without deficit. Sensation intact. Radial pulse intact. Office Procedures AMB Fracture Care Fracture Billing Code: Fracture Billing Code Assessment & Plan Assessment & Plan (1) Closed fracture of left proximal humerus: Code(s): S42.202A - Unspecified fracture of upper end of left humerus, initial encounter for closed fracture Category: Medical Plan Mr. Corral is a 68-year-old right hand dominant male who presents in the office today, as a new patient, for an evaluation of a left humeral neck fracture. The patient presented to the ED on 04/15/24 status post a fall around 2:30 AM in the morning. The patient woke up to use the restroom; suddenly he slipped on the wooden floors and landed directly on his left shoulder. He was on the floor for approximately 2 hours because he did not want to wake up his sister in the middle of the night. X-rays of the left shoulder were obtained. He was provided with a sling and prescribed acetaminophen 1000 mg Q8H PRN for pain. He was recommended resting and icing the injured area to aid with pain. While in the office today, the patient reports ongoing left shoulder pain. He states he fell out of bed and landed on his left shoulder. He rates his pain a 9-10/10 on the pain scale. The patient has a history of substance use on methadone 60 mg from a clinic he visits. The patient may use a sling as needed for comfort. He was encouraged to come out of the sling and to allow the arm to hang and to work on ROM of the elbow, hand and wrist. Exercises demonstrated to the patient while in the office today. He is on methadone 60 mg at baseline. He was recommended to take Tylenol and ibuprofen PRN alternatively for pain. Follow-up will be in 4 weeks with repeat x-rays, or sooner if needed. X-rays of the left upper extremity, which were obtained while in the office today and were reviewed by me, Iman Knowles PA-C, revealed: left proximal humerus fracture. X-rays of the left shoulder, obtained on 04/15/24, revealed: 1. Comminuted minimally displaced fracture of the left humeral neck extending to the greater tuberosity. 2. Mild superior displacement of the humeral head with respect to the glenoid. 3. Joint effusion and soft tissue hematoma. Orders: Orders XR shoulder LT min 2V 04/25/24 M25.519 - Pain in unspecified shoulder Patient Instructions: Scribed by Latonia Hebert medical office rep, for Iman Knowles PA-C on 04/25/24 at 2:49 pm EST. Coding Level of Care Code New Pt Level 4 (36527) Complex EM visit Add On G2211 Diagnoses Closed fracture of left proximal humerus S42.202A CPT Codes Fracture Care - Fracture Billing Code: Fracture Billing Code ([id number])
== END 2024-04-25 15:49 | disposition home or self-care (01) ==
PROVIDERS: PCP Physician Assistant; Visit Provider Physician Assistant
DX: S42.202A Unspecified fracture of upper end of left humerus, initial encounter for closed fracture (principal)
CPT/HCPCS: 99203; G2211

== ENCOUNTER 2024-05-23 08:09 | Outpatient (REF) | payer OTHER, SELFPAY ==
--- NOTE | ~2024-05-23 | XR_ITS ---
EXAMINATION: XR SHOULDER, LEFT CLINICAL INFORMATION: M25.519 - Pain in unspecified shoulder COMPARISON: Prior radiograph most recent 04/25/2024 TECHNIQUE: 2 views of the left shoulder FINDINGS: Proximal humerus fracture extending through the surgical neck redemonstrated. No change in alignment. Fracture line slightly less conspicuous compared to prior. Some sclerosis surrounding the area fracture. Glenohumeral joint normal. Acromial clavicular joint demonstrates mild arthrosis. XR/XR shoulder LT min 2V IMPRESSION: Healing proximal left humerus fracture. Arthrosis of the acromioclavicular joint Electronically signed by: Don Hernandez MD 05/28/2024 01:11 PM NAYE BECKER
== END 2024-05-23 08:10 | disposition home or self-care (01) ==
LOC: HO.HOSX 08:09
PROVIDERS: Visit Provider Physician Assistant
DX: S42.202A Unspecified fracture of upper end of left humerus, initial encounter for closed fracture (principal); M25.512 Pain in left shoulder
CPT/HCPCS: 73030; 99212

== ENCOUNTER 2024-05-23 12:50 | Outpatient (AMB) | payer OTHER, SELFPAY ==
--- NOTE | 2024-05-23 13:13 | MHC.OFFVIS ---
Intake Visit Reasons: OV- left humeral neck fx, DOI 04/15/24 Intake Note: Charles is a 68 year right hand dominant old male who presents today for a ROM check of his left proximal humerus fx, DOI 04/15/24. Patient reports he is still feeling sore. He mentions that his pain has gotten a little better. Allergies No Known Allergies [No Known Allergies*] Allergy (Verified 05/23/24 13:19) HPI HPI OV- left humeral neck fx, DOI 04/15/24: Details: 69-year-old right hand dominant male who presents in the office today for a follow-up of left humeral neck fracture status post a fall which occurred on 04/15/24. I last saw the patient in the office on 04/25/24 when he was encouraged to come out of the sling to allow ROM of the elbow, hand and wrist. He may wear the sling as needed for comfort. He was advised to take Tylenol or ibuprofen PRN for pain. While in the office today, the patient presents today for a ROM check of his left proximal humerus. He reports he still continues to experience soreness in the left upper extremity; however, his pain has mildly improved. The patient has a history of substance use on methadone 60 mg. [facility] Social History Alcohol intake: current Alcohol intake frequency: holidays/special occasions only Patient Tobacco Use Status: Current everyday Tobacco user Cigarette Packs Per Day: 1 Current occupational status: retired and disabled Current occupation: right hand dominant Review of Systems Const All systems reviewed & are unremarkable except as noted in HPI and below Physical Exam Const General: cooperative and no acute distress Orientation/consciousness: patient oriented x3 Resp Effort & Inspection: normal respiratory effort and able to speak in complete sentences Cardio Peripheral pulses: Peripheral pulses 2+ throughout Skin General skin exam: no rashes or lesions noted Neuro General: patient oriented x3 Extrem Other: Left shoulder: 45 degrees of forward flexion and abduction. External rotation to neutral. NVI. Assessment & Plan Assessment & Plan (1) Closed fracture of left proximal humerus: Code(s): S42.202A - Unspecified fracture of upper end of left humerus, initial encounter for closed fracture Category: Medical Plan Mr. Corral is a 69-year-old right hand dominant male who presents in the office today for a follow-up of left humeral neck fracture status post a fall which occurred on 04/15/24. I last saw the patient in the office on 04/25/24 when he was encouraged to come out of the sling to allow ROM of the elbow, hand and wrist. He may wear the sling as needed for comfort. He was advised to take Tylenol or ibuprofen PRN for pain. While in the office today, the patient presents today for a ROM check of his left proximal humerus. He reports he still continues to experience soreness in the right upper extremity; however, his pain has mildly improved. The patient has a history of substance use on methadone 60 mg. The patient is hesitant to attend any formal physical therapy. I discussed with the patient that the [facility] in [place] will be convenient for him for physical therapy and have placed a referral for PT there today. I encouraged him to at least attend one to two sessions with home exercise program instruction to work on range of motion. Follow-up will be in 6 weeks with repeat x-rays, or sooner if needed. X-rays of the left upper extremity, which were obtained while in the office today and were reviewed by me, Iman Knowles PA-C, revealed: Routine healing of left humeral neck fracture. Orders: Orders XR shoulder LT min 2V 05/23/24 M25.519 - Pain in unspecified shoulder PT Evaluation and Treatment 05/23/24 S42.A - Unspecified fracture of upper end of left humerus, initial encounter for closed fracture Patient Instructions: Scribed by Latonia Hebert, medical administrative technician, for Iman Knowles PA-C on 05/23/24 at 1:37 pm EST. Coding Level of Care Code Global (84084) Diagnoses Closed fracture of left proximal humerus S42.A
== END 2024-05-23 13:36 | disposition home or self-care (01) ==
PROVIDERS: PCP Physician Assistant; Visit Provider Physician Assistant
DX: S42.202A Unspecified fracture of upper end of left humerus, initial encounter for closed fracture (principal)
CPT/HCPCS: 99213

== ENCOUNTER 2024-07-06 12:22 | Outpatient (REF) | payer MEDICARE, SELFPAY ==
--- NOTE | ~2024-07-06 | XR_ITS ---
EXAMINATION: XR HUMERUS LEFT HISTORY: S4 - Unspecified fracture of upper end of left humerus, initial en... COMPARISON: Comparison is made with the prior examination dated 05/23/2024. FINDINGS: Two views of the left humerus are submitted. Again seen is an impacted fracture of the surgical neck of the humerus. The appearance is not significantly changed from the prior study. The visualized glenohumeral and elbow joint spaces are preserved. There is a calcification adjacent to the greater tuberosity of the humerus which is likely related to the rotator cuff. XR/XR humerus LT IMPRESSION: Impacted fracture of the surgical neck of the humerus without significant change. Electronically signed by: Hamilton Summers MD 07/11/2024 10:57 AM NAYE
== END 2024-07-06 12:23 | disposition home or self-care (01) ==
LOC: HO.HOSX 12:22
PROVIDERS: PCP Physician Assistant; Visit Provider Physician Assistant
DX: S42.202D Unspecified fracture of upper end of left humerus, subsequent encounter for fracture with routine healing (principal)
CPT/HCPCS: 73060; 99212

== ENCOUNTER 2024-07-06 12:22 | Outpatient (AMB) | payer MEDICARE, SELFPAY ==
--- NOTE | 2024-07-06 12:56 | MHC.OFFVIS ---
Vital Signs 07/06/24 13:00 Height 5 ft 11 in Weight 185 lb BMI 25.8 Handedness Right Intake Visit Reasons: OV- LT humeral neck fx, DOI 04/15/24-w/xray Intake Note: Charles is a 68 year right hand dominant old male who presents today for a follow up of his left proximal humerus fx, DOI 04/15/24. Patient reports he is feeling better. He mentions that he didn't go to PT. Allergies No Known Allergies [No Known Allergies*] Allergy (Verified 07/06/24 12:59) HPI HPI OV- LT humeral neck fx, DOI 04/15/24-w/xray: Details: Mr. Corral is a 69-year-old right-hand dominant male who presents to the office today for routine follow-up status post left proximal humerus fracture. Date of injury was . He reports that overall he is doing very well. He has not attended any physical therapy however. He has also weaned out of the sling completely. He complains of soreness and mild discomfort but overall is doing much better. [facility] Social History Alcohol intake: current Alcohol intake frequency: holidays/special occasions only Patient Tobacco Use Status: Current everyday Tobacco user Cigarette Packs Per Day: 1 Current occupational status: retired and disabled Current occupation: right hand dominant Physical Exam Vital Signs: BMI result Body Mass Index 25.8 Const General: cooperative, healthy appearing and no acute distress Resp Effort & Inspection: normal respiratory effort and able to speak in complete sentences Cardio Rate: regular rate Peripheral pulses: Peripheral pulses 2+ throughout Skin Lesions: no lesions Rashes: no rashes Extrem Other: Left shoulder forward flexion lacking about 10 degrees. Abduction lacking about 20 degrees. Able to reach back pocket. NVI. Assessment & Plan Assessment & Plan (1) Closed fracture of left proximal humerus: Code(s): S42.A - Unspecified fracture of upper end of left humerus, initial encounter for closed fracture Category: Medical Plan Mr. Corral is a 69-year-old [id number] male who presents to the office today for routine follow-up status post left proximal humerus fracture. Date of injury was 04/15/2024. Overall he has been doing very well. He is not tender new physical therapy. He has weaned out of the sling completely. He still complains of mild discomfort. Overall his range of motion is very good. I discussed with the patient his x-ray results which is left proximal humerus fracture with routine healing. He has very good range of motion and therefore has decided not to attend any physical therapy. I cautioned the patient on any heavy lifting pushing or pulling for the next 6 weeks. He should use pain as his guide with activities. And has follow-up with me will be p.r.n., sooner if needed. X-rays obtained in the office today were reviewed by me and reveal routine healing proximal humerus fracture left shoulder. Orders: Orders XR humerus LT Today S42.A - Unspecified fracture of upper end of left humerus, initial encounter for closed fracture Coding Level of Care Code Global (12606) Diagnoses Closed fracture of left proximal humerus S42.A
[2024-07-06 13:00] VITALS: BMI 25.8
== END 2024-07-06 13:05 | disposition home or self-care (01) ==
PROVIDERS: PCP Physician Assistant; Visit Provider Physician Assistant
DX: S42.202D Unspecified fracture of upper end of left humerus, subsequent encounter for fracture with routine healing (principal)
CPT/HCPCS: 99213

== ENCOUNTER 2024-08-08 09:38 | Outpatient (AMB) | payer MEDICARE, MEDICAID, SELFPAY ==
--- NOTE | 2024-08-08 10:28 | AM.OFFWIN_ITS ---
Intake Vital Signs 08/08/24 10:32 Weight 192 lb BP 140/90 H Blood Pressure Location Lt brachial Position Sitting Pulse 83 Pulse Source Pulse Oximeter Pulse Oximetry (%) 96 Oxygen Delivery Method Room Air Intake Visit Reasons: EP RT hand, RT leg swelling Intake Note: Patient here for right hand pain and right leg swelling that has been present for a couple of months. Patient Tobacco Use Status: Current everyday Tobacco user Allergies No Known Allergies [No Known Allergies*] Allergy (Verified 08/08/24 10:32) Do you need a note to return to daycare/school/sports/work: No HPI HPI Comments History of Present Illness Details History of Present Illness - The patient is a 69-year-old male pres enting with numbness of the right hand, noted to be constant and presents with coldness. - The patient has experienced these symp toms for four to five months. - There is an absence of weakness, but t he patient perceives swelling in the hand. - There is a past medical history of a p roximal humerus fracture secondary to a fall, which required orthopedic evaluation at [facility] so he is familiar with the practice. - The patient denies having diabetes and any problems with kidney function. - Currently, the patient is not under e care of a primary care physician. The patient is a 69-year-old male presenting also with right leg swelling. The swelling has been present for approximately two months without associated pain. The leg appears normal in color, and there is no notable medical history of prolonged immobility or recent surgeries or active cancer however pt does not recieve regular medical care nor does he have a PCP. The patient does have a history of current tobacco use. He denies any personal or family history of blood clots. No shortness of breath or systemic symptoms are reported. Physical Exam General: Cooperative, healthy appearing, comfortable, no acute distress and well developed Orientation: Patient oriented x3 Limitations: No limitations Head: Normal to inspection Ears: Hearing grossly normal bilaterally Nose: Normal external nose present Face and sinus: Normal facial exam Eyes: Appearance normal, both eyes and all related structures Neck: Normal visual inspection and Yes full ROM Respiratory: Normal respiratory effort and able to speak in complete sentences. Skin: No rashes or lesions noted Neuro: Patient oriented x3 Extremities: as below [facility] Social History Alcohol intake: current Alcohol intake frequency: holidays/special occasions only Patient Tobacco Use Status: Current everyday Tobacco user Cigarette Packs Per Day: 1 Current occupational status: retired and disabled Current occupation: right hand dominant Review of Systems Const All systems reviewed & are unremarkable except as noted in HPI and below Physical Exam Vital Signs: Last Vital Signs Pulse 83 08/08/24 10:32 BP 140/90 H 08/08/24 10:32 Pulse Ox 96 08/08/24 10:32 Oxygen Delivery Method Room Air 08/08/24 10:32 Extrem Right upper extremity: 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, neg phalens, neg tinels) Details: normal capillary refill, neuromotor exam normal, neurosensory exam normal, tendon exam normal, vascular exam Details: radial pulse present and normal capillary refill, normal ROM of fingers and swelling (throughout- slight); no tenderness, no unusual warmth, no abrasions, no lacerations, no ecchymosis and no foreign bodies Right lower extremity: lower leg (negative Delaney's) Details: pitting edema Details: 1+; inspection abnormal (swelling noted), no erythema, no tenderness, no palpable cords, no abrasions, no lacerations, no ecchymosis, no penetrating wound, no deformity and no unusual warmth Assessment & Plan Assessment & Plan (1) Numbness of right hand: Code(s): R20.0 - Anesthesia of skin Plan: The patient will initiate treatment with diclofenac to address swelling and associated numbness. A hand x-ray will be performed to further assess any underlying issues contributing to the patient's symptoms, and results will be reviewed for any findings necessitating further action or referral to orthopedic specialists. Establishing a primary care relationship is recommended for comprehensive management and facilitating any necessary specialist referrals. The previous proximal humerus fracture is acknowledged without additional intervention at this time. Hand XR my interpretation was no acute fx, some arthritis. Follow up with Ortho if symptoms continue. Patient was informed and verbally consented to the use of an ambient scribe for clinic note documentation during this visit. (2) Swelling of right lower extremity: Code(s): M79.89 - Other specified soft tissue disorders Plan: Wells Score for DVT is 2 points and pt is a smoker with poor health managment. Will get RLE US to rule out DVT, appt has been made at 1:30pm today, he will return to the office for the US and hand XR. An ultrasound for the right leg is planned to evaluate for deep vein thrombosis as a potential cause of the swelling. Further assessment is necessary due to the nature of the symptoms and the patient's smoking history. Tobacco cessation is advisable but is best managed through the patient?s primary care provider, which the patient was en couraged to set up [facility]HEL[facility]. US showed no clot on RLE, communicated this to the patient. Again, recommended he obtain a PCP to investigate the cause of his swelling in his right leg. Patient verbalized understanding. Patient was informed and verbally consented to the use of an ambient scribe for clinic note documentation during this visit. Orders: Orders XR hand RT min 3V Today R20.0 - Anesthesia of skin US venous duplex LE RT Today M79.89 - Other specified soft tissue disorders Medications: New diclofenac sodium 50 mg PO Q12H PRN 20 tabs 0RF pain Coding Level of Care Code New Pt Level 5 (48779) Diagnoses Numbness of right hand R20.0 Swelling of right lower extremity M79.89
[2024-08-08 10:32] VITALS: BP 140/90; PULSE 83; O2SAT 96
== END 2024-08-08 11:19 | disposition home or self-care (01) ==
PROVIDERS: PCP Physician Assistant; Visit Provider Physician Assistant
DX: R20.0 Anesthesia of skin (principal); M79.89 Other specified soft tissue disorders

== ENCOUNTER → 2024-08-08 09:38 | Outpatient (BNVA) | payer MEDICARE, MEDICAID, SELFPAY | PROVIDERS: PCP Physician Assistant ==

== ENCOUNTER 2024-08-08 13:23 | Outpatient (REF) | payer MEDICARE, MEDICAID, SELFPAY ==
--- NOTE | ~2024-08-08 | XR_ITS ---
EXAMINATION: XR HAND 3 OR MORE VIEWS RIGHT HISTORY: R20.0 - Anesthesia of skin COMPARISON: There are no prior studies available for comparison. FINDINGS: Three views of the right hand are submitted. Osseous mineralization is normal. There are old healed fracture deformities of the 2nd metacarpal head and the 5th metacarpal neck. There is no acute fracture or dislocation. There is mild osteoarthritis of the MCP joint of the from. The soft tissues are unremarkable. 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 Electronically signed by: Hamilton Summers MD 08/08/2024 02:03 PM NAYE BECKER
--- NOTE | ~2024-08-08 | US_ITS ---
EXAMINATION: US TRIPLEX LOWER EXTREMITY, RIGHT CLINICAL INFORMATION: Right leg swelling. COMPARISON: None available. TECHNIQUE: Color-flow triplex imaging with spectral analysis and compression Doppler were performed on the right lower extremity. FINDINGS: Respiratory variation, normal compression and augmented flow are noted throughout the right lower extremity. The visualized common femoral vein, superficial femoral vein, profunda femoral vein, popliteal vein and midcalf peroneal and posterior tibial venous segments show no evidence of deep venous thrombosis. There is no Figueroa's cyst. US/US venous duplex LE RT IMPRESSION: No evidence of deep venous thrombosis involving the right lower extremity. Electronically signed by: Jovan Braun MD 08/08/2024 01:57 PM EST
== END 2024-08-08 13:24 | disposition home or self-care (01) ==
LOC: HO.HMGCX 13:23
PROVIDERS: Visit Provider Physician Assistant
DX: R20.0 Anesthesia of skin (principal); M79.89 Other specified soft tissue disorders; M79.604 Pain in right leg
CPT/HCPCS: 73130; 93971; 99202

== ENCOUNTER → 2024-08-08 13:26 | Outpatient (BNV) | payer MEDICARE, MEDICAID, SELFPAY | PROVIDERS: Visit Provider Radiology Diagnostic Radiology | DX: M18.11 Unilateral primary osteoarthritis of first carpometacarpal joint, right hand (principal); R22.41 Localized swelling, mass and lump, right lower limb | CPT/HCPCS: 93971 ==

== ENCOUNTER 2025-04-11 10:05 | Outpatient (AMB) | payer MEDICARE, MEDICAID, SELFPAY ==
--- NOTE | 2025-04-11 10:08 | MHC.OFFWIV ---
Intake Vital Signs 04/11/25 10:09 Height 5 ft 11 in Weight 180 lb BMI 25.1 BP 152/80 H Blood Pressure Location Lt brachial Position Sitting Pulse 85 Pulse Source Pulse Oximeter Temp 98.0 F Temp Source Oral Pulse Oximetry (%) 96 Oxygen Delivery Method Room Air Intake Visit Reasons: EP-rt foot/hand pain & swollen Intake Note: pt presents with right hand pain for 6-8 months and right foot pain for months as well Patient Tobacco Use Status: Current everyday Tobacco user Allergies No Known Allergies (No Known Allergies*) Allergy (Verified 04/11/25 10:09) Do you need a note to return to daycare/school/sports/work: No HPI HPI Comments History of Present Illness Details History of Present Illness - The patient is a 69-year-old male presenting with pain in the right foot and right hand. 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 - He was seen here in Jul with the same complaints. - He had a previous hand x-ray showing arthritic changes in Jul when he was here at the clinic. - He was given Diclofenac for his pain and it did not help. - He states that he continues to have pain in the right hand and swelling. - He states that the pain has been a numbness. - He has pain all over but the hand and foot are the worse. - The patient reports swelling and redness in the right foot, which has worsened over the past few weeks. - The patient was previously prescribed diclofenac for pain and inflammation, and an ultrasound was performed on the leg. - He states that the foot is hot, swollen and red. - He does state that he was trying to cut his toenails and thinks it is attributing to the redness of the foot. - The patient does not have a primary care physician and has not been followed up for diabetes or other potential underlying conditions. - He denies fever, chills, nodules, or rashes. - He denies chest pain, SOB, abd pain, or n/v/d. Physical Exam General: Cooperative, healthy appearing, comfortable, no acute distress and well developed Orientation: Patient oriented x3 Limitations: No limitations Respiratory: Normal respiratory effort and able to speak in complete sentences. Clear to auscultation bilaterally Cardiovascular: Regular rate and rhythm. Normal S1 and S2. No m/r/g noted. Pulses are 1+ on the LE bilaterally. Skin: Erythema to the right foot. No open wounds noted. No lesions noted. No rashes noted. Long, thickened toenails noted. Neuro: Patient oriented x3. Sensation intact. Extremities: Swelling noted to the right hand and no deformity noted. No TTP of the phalanges or metacarpals of the right hand. FROM of the digits on the right hand. FROM of the right wrist. 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 Patient was informed and verbally consented to the use of an ambient scribe for clinic note documentation during this visit. [facility] Social History Alcohol intake: current Alcohol intake frequency: holidays/special occasions only Patient Tobacco Use Status: Current everyday Tobacco user Cigarette Packs Per Day: 1 Current occupational status: retired and disabled Current occupation: right hand dominant Review of Systems Const All systems reviewed & are unremarkable except as noted in HPI and below Physical Exam Vital Signs: Last Vital Signs Temp 98.0 F 04/11/25 10:09 Pulse 85 04/11/25 10:09 BP 152/80 H 04/11/25 10:09 Pulse Ox 96 04/11/25 10:09 Oxygen Delivery Method Room Air 04/11/25 10:09 BMI result Body Mass Index 25.1 Assessment & Plan Assessment & Plan (1) Numbness of right hand: Code(s): R20.0 - Anesthesia of skin Plan: Most likely arthritis vs neuropathy plan - rest and elevate the hand - naproxen as needed for pain - needs to see a PCP for further work up (2) Cellulitis of right foot: Code(s): L03.115 - Cellulitis of right lower limb Plan Most likely cellulitis plan - Initiate antibiotic therapy to address the infection. - naproxen as needed for pain - Recommend follow-up with primary care for further evaluation and management. - Needs to establish care with a PCP - he was given the names of providers whom are taking new patients - he currently does not have a PCP - advised to go to the ER if his redness, fever, etc Medications: New cephalexin 500 mg PO Q6H 28 caps 0RF naproxen 500 mg PO Q12H PRN 20 tabs 0RF pain 7 days Coding Level of Care Code Est Pt Level 4 (37478) Diagnoses Numbness of right hand R20.0 Cellulitis of right foot L03.115
[2025-04-11 10:09] VITALS: BP 152/80; PULSE 85; TEMP 36.7; O2SAT 96; BMI 25.1
== END 2025-04-11 11:20 | disposition home or self-care (01) ==
PROVIDERS: PCP Physician Assistant; Visit Provider Physician Assistant Medical
DX: R20.0 Anesthesia of skin (principal); L03.115 Cellulitis of right lower limb

== ENCOUNTER → 2025-04-11 10:05 | Outpatient (BNVA) | payer MEDICARE, MEDICAID, SELFPAY | PROVIDERS: PCP Physician Assistant; Visit Provider Physician Assistant Medical | DX: L03.115 Cellulitis of right lower limb (principal); M79.671 Pain in right foot; M79.641 Pain in right hand; G62.9 Polyneuropathy, unspecified; R20.0 Anesthesia of skin | CPT/HCPCS: 99212 ==

== ENCOUNTER 2025-06-13 10:22 | Outpatient (REF) | payer MEDICARE, MEDICAID, SELFPAY ==
--- NOTE | ~2025-06-13 | US_ITS ---
EXAMINATION: US TRIPLEX LOWER EXTREMITY, RIGHT CLINICAL INFORMATION: Right lower extremity edema. COMPARISON: 08/08/24. TECHNIQUE: Color-flow triplex imaging with spectral analysis and compression Doppler were performed on the right lower extremity. FINDINGS: Respiratory variation, normal compression and augmented flow are noted throughout the right lower extremity. The visualized common femoral vein, superficial femoral vein, profunda femoral vein, popliteal vein and midcalf posterior tibial venous segments show no evidence of deep venous thrombosis. The right peroneal vein could not be well seen. There is no Figueroa's cyst. US/US venous duplex LE RT IMPRESSION: No evidence of deep venous thrombosis involving the right lower extremity. Electronically signed by: Jovan Braun MD 06/13/2025 11:40 AM [facility]
--- OUTSIDE RECORDS SUMMARY | 2025-06-13 09:00 | XMS_ITS | Encounter Summary ---
Author Organization [email or web address] Address [address] [place] [address] Care Team Providers Care Professor Of Voice Name Role Phone Mayra Bagley NP Primary Care Provider [phone] Reason for Referral * Imaging (STAT) - Authorized Specialty Diagnoses / Procedures Referred By Merry t Referred To Contact Cardiology Diagnoses Edema of right lower extremity Procedures Vascular US lower extremity venous duplex right Mayra Bagley NP [address] [place] [address] Phone: tel: fax: [address] [id number] Phone: tel: fax: Referral ID Status Reason Start Date Expiration Date Visits Requested Visits Authorized [id number] Authorized Perform Procedure 5 06/13/2026 1 1 * Consultation (Urgent) - Pending Review Specialty Diagnoses / Procedures Referred By Contrenate t Referred To Contact Cardiology Diagnoses Hypertension, unspecified type Mayra Bagley NP [address] [place] [address] Phone: tel: fax: Referral ID Status Reason Start Date Expiration Date Visits Requested Visits Authorized [id number] Pending Review Specialty Services Required 5 06/13/2026 1 1 * Consultation (Routine) - Authorized Specialty Diagnoses / Procedures Referred By Contac t Referred To Contact Dental Commercial Attorney / Dentistry Diagnoses Routine general medical examination at a health care facility Mayra Bagley NP [address] [place] [address] Phone: tel: fax: Referral ID Status Reason Start Date Expiration Date Visits Requested Visits Authorized [id number] Authorized Consult and Treat 06/13/2025 06/13/2026 1 1 * Medications - Closed Specialty Diagnoses / Procedures Referred By Merry quiñones Referred To Contact Diagnoses Lumbar radiculopathy Mayra Bagley NP [address] [place] [address] Phone: tel: fax: Referral ID Status Reason Start Date Expiration Date Visits Re quested Visits Authorized [id number] Closed 1 1 * Imaging (Routine) - Authorized Specialty Diagnoses / Procedures Referred By Merry quiñones Referred To Contact Radiology Diagnoses Cigarette nicotine dependence with nicotine-induced disorder Procedures CT Lung Screening Low dose Mayra Bagley NP [address] [place] [address] Phone: tel: fax: [address] [phone] Phone: tel: fax: Referral ID Status Reason Start Date Expiration Date V isits Requested Visits Authorized [id number] Authorized 06/13/2025 06/13/2026 1 1 * Consultation (Routine) - Pending Review Specialty Diagnoses / Procedures Referred By Merry quiñones Referred To Contact Physiatry Diagnoses Lumbar radiculopathy Mayra Bagley NP [address] [place] [address] Phone: tel: fax: Referral ID Status Reason Start Date Expiration Date Visits Requested Visits Authorized [id number] Pending Review Specialty Services Required 5 06/13/2026 1 1 Encounter Details Date Type Department Care Team (Late st Contact Info) Description 06/13/2025 9:00 AM EST Office Visit [facility] [address] [place] [address] Mayra Bagley NP [address] [place] [address] Opioid dependence with opioid-induced disorder (CMS/HCC) (HCC) (Primary Dx); Cervical radiculopathy; Other insomnia; Chronic hepatitis C without hepatic coma (HCC); Cigarette nicotine dependence with nicotine-induced disorder; Routine general medical examination at a health care facility; Other migraine without status migrainosus, intractable; Lumbar radiculopathy; Screening for colon cancer; Malignant neoplasm of colon, unspecified part of colon (CMS/HCC) (HCC); Hypertension, unspecified type; Colon cancer screening; Dietary counseling; Exercise counseling; Edema of right lower extremity Social History Tobacco Use Types Packs/Day Years Used Date Smoking Tobacco: Never Assessed Alcohol Answer Date Recorded How often do you have a drink containing alcohol ? 1 06/13/2025 How many drinks containing a lcohol do you have on a typical day when you are drinking? 0 06/13/2025 How often do you have six or more drinks on one occasion? 0 06/13/2025 Depression Answer Date Recorded Patient Health Questionnaire-9 Score 7 06/13/2025 Patient Health Questionnaire-9 Score 7 06/13/2025 Last PHQ-9: Questionnaire Data Not on file 1 08/14/2024 Housing Stability Answer Date Recorded What is your housing situation today? I have lucy javed 06/13/[address] you li ve. Do you have problems with any of the following? Not on file 06/13/2025 Food Insecurity Answer Date Recorded Within the past 12 months, y ou worried that your food would run out before you got money to buy more: Never True 2024 Within the past 12 months,th e food you bought just didn't last and you didn't have enough money to get more: Sometimes True 06/13/2025 Transportation Answer Date Recorded In the past 12 months, has l ack of transportation kept you from medical appts, meetings, work or from getting things needed for daily living? No 06/13/2025 Utilities Answer Date Recorded In the past 12 months, has t he electric, gas, oil or water company threatened to shut off services in your home? No 06/13/2025 Depression Answer Date Recorded Patient Health Questionnaire-2 Score 1 06/13/2025 Internet Access Answer Date Recorded Internet Access Q1 Yes 06/13/2025 Internet Access Q2 Not on file 06/13/2025 Sex and Gender Information Value Date Recorded Sex Assigned at Male 04/27/2022 10:15 AM EDT Legal Sex Male 10:15 AM EDT Gender Identity Male 05/31/2025 9:48 AM EST Sexual Orientation Straight 05/31/2025 9: 48 AM EST documented as of this encounter Last Filed Vital Signs Vital Sign Reading Time Taken Comments Blood Pressure 158/78 06/13/2025 9:17 AM EST Pulse 90 06/13/2025 9:17 AM EST Temperature 36.8 C (98.2 F) 06/13/2025 9:17 AM EST Respiratory Rate 19 06/13/2025 9:17 AM EST Oxygen Saturation 98% 06/13/2025 9:17 AM EST Inhaled Oxygen Concentration - - Weight 85.5 kg (188 lb 6.4 oz) 06/13/2025 9:17 A M EST Height 182.9 cm (6') 06/13/2025 9:17 AM EST Body Mass Index 25.55 06/13/2025 9:17 AM EST documented in this encounter Functional Status * Over the past 2 weeks, how often have you been bothered by any of the following problems? Question Answer Date of Assessment Author Patient Health Questionnaire-2 Score 1 05/28 9:19 AM Darnell Vickers [place] * Little interest or pleasure in doing things Answer Date of Assessment Author Several days 06/13/2025 9:19 AM Betty Vickers [place] * Feeling down, depressed, or hopeless Answer Date of Assessment Author Not at all 06/13/2025 9:19 AM Betty Vickers [place] * Trouble falling or staying asleep, or sleeping too much Answer Date of Assessment Author More than half the days 06/13/2025 9:19 AM Darnell Calderon [place] * Feeling tired or having little energy Answer Date of Assessment Author More than half the days 06/13/2025 9:19 AM Darnell Calderon [place] * Poor appetite or overeating Answer Date of Assessment Author Not at all 06/13/2025 9:19 AM Betty Vickers [place] * Feeling bad about yourself - or that you are a failure or have let yourself or your family down Answer Date of Assessment Author Several days 06/13/2025 9:19 AM Betty Vickers MA * Trouble concentrating on things, such as reading the newspaper or watching television Answer Date of Assessment Author Not at all 06/13/2025 9:19 AM Betty Vickers MA * Moving or speaking so slowly that other people could have noticed? Or the opposite - being so fidgety or restless that you have been moving around a lot more than usual. Answer Date of Assessment Author Several days 06/13/2025 9:19 AM Betty Vickers MA * Thoughts that you would be better off or hurting yourself in some way Answer Date of Assessment Author Not at all 06/13/2025 9:19 AM Betty Vickers MA * Patient Health Questionnaire-9 Score Answer Date of Assessment Author 7 06/13/2025 9:19 AM Betty Vickers MA * Over the last 2 weeks, how often have you been bothered by any of the following problems? Question Answer Date of Assessment Author Feeling nervous, anxious, or on edge 1 05/28 9:20 AM Darnell Vickers MA Not being able to stop or co ntrol worrying 2 06/13/2025 9:20 AM Darnell Vickers MA Worrying too much about diff erent things 2 06/13/2025 9:20 AM Darnell Vickers MA Trouble relaxing 1 06/13/2025 9:20 AM Darnell Calderon [place] Being so restless that it is hard to sit still 2 06/13/2025 9:20 AM Darnell Vickers MA Becoming easily annoyed or irritable 1 05/28 9:20 AM Darnell Vickers MA Feeling afraid as if somethi ng awful might happen 0 06/13/2025 9:20 AM Darnell Vickers MA JOSELUIS-7 Total Score 9 06/13/2025 9:20 AM Darnell Vickers MA * How difficult have these problems made it for you to do your work, take care of things at home, or get along with other people? Answer Date of Assessment Author Not difficult at all 06/13/2025 9:19 AM Darnell Betancur MA documented as of this encounter Progress Notes * Mayra Bagley NP - 06/13/2025 9:00 AM EST Subjective: Charles Corral is a 70 y.o. male who presents to the office for a physical exam. Interim history: Charles Corral, 70-year-old male - History of opioid use disorder, currently on methadone maintenance therapy, stable at 60 mg dailyfor over 4 years - Rare use of opiates, previously used heroin - Multiple episodes of pain: chronic pain in head, neck, upper and lower back, severe enough to require use of a cane for ambulation - History of broken neck at age 14, ruptured disc in early 20s, ongoing pain since injuries - Reports insomnia, unchanged over time - Reports headaches, unclear if migraines - Occasional pain above heart, not clearly cardiac, occurs with activity, resolves with rest - History of hepatitis B, reported as resolving - History of two prior trials of Suboxone, did not like effect - Smokes cigarettes, has reduced use - Previously in rehabilitation facility, received blood pressure medication during stay - Denies current mental health concerns Problem List[1] Surgical History[2] Family History[3] Social History Living situation: sister Employment/Education: high school Diet/exercise: Substance use: -alcohol little -tobacco yes -opioids yes Sexual activity: Mental health: Patient Health Questionnaire-9 Score: 7 (06/13/2025 9:19 AM) Patient Health Questionnaire-2 Score: 1 (06/13/2025 9:19 AM) Thoughts that you would be better off or hurting yourself in some way: Not at all (06/13/2025 9:19 AM) Allergies[4] Review of Systems Vitals: 06/13/25 0917 BP: (!) 158/78 BP Location: Right arm Patient Position: Sitting BP Cuff Size: Adult Pulse: 90 Resp: 19 Temp: 98.2 ??F (36.8 ??C) TempSrc: Oral SpO2: 98% Weight: 188 lb 6.4 oz (85.5 kg) Height: 6' (1.829 m) Physical Exam Vitals reviewed. Constitutional: Appearance: Normal appearance. HENT: Head: Normocephalic. Cardiovascular: Rate and Rhythm: Normal rate. Heart sounds: Normal heart sounds. Pulmonary: Breath sounds: Normal breath sounds. Abdominal: Palpations: Abdomen is soft. Musculoskeletal: Cervical back: Neck supple. Right lower leg: Edema present. Skin: Coloration: Skin is not pale. Neurological: General: No focal deficit present. Mental Status: He is alert. Psychiatric: Mood and Affect: Mood normal. - CARDIOVASCULAR: Cardiopulmonary auscultation performed. - LUNGS: Cardiopulmonary auscultation performed. Assessment & Plan Opioid dependence with opioid-induced disorder (CMS/HCC) (HCC) Cervical radiculopathy Other insomnia Chronic hepatitis C without hepatic coma (HCC) Cigarette nicotine dependence with nicotine-induced disorder Orders: CT Lung Screening Low dose; Future Routine general medical examination at a health care facility Orders: Lipid Panel, Standard; Future Comprehensive Metabolic Panel; Future Hemoglobin A1c; Future HIV-1/2 Antigen and Antibodies, Fourth Generation, with Reflexes; Future Hepatitis C Antibody with Reflex to HCV, RNA, Quantitative, Real-Time PCR; Future Referral to [facility]; Future Other migraine without status migrainosus, intractable Lumbar radiculopathy Orders: Referral to Physiatry; Future lidocaine (Lidoderm) 5 % patch; Apply 1 patch topically Once per day. Remove & discard patch within 12 hours or as directed by . Screening for colon cancer Orders: Cologuard?? colon cancer screening Malignant neoplasm of colon, unspecified part of colon (CMS/HCC) (HCC) Orders: PSA, Screen; Future Hypertension, unspecified type Orders: Referral to Cardiology; Future Colon cancer screening Dietary counseling Exercise counseling Dietary Recommendations: Fruits, vegetables, whole grains, protein foods, and fat-free or low-fat dairy products are healthychoices. Eat different types of protein foods in your diet. This can include seafood, lean meats, poultry, beans, peas, lentils, nuts, seeds, soy products, and eggs. Limit foods and beverages higher in added sugars, saturated fat, and sodium. Exercise Recommendations: At least 150 minutes of moderate-intensity physical activity per week, or an equivalent combinationof moderate- and vigorous-intensity activity Edema of right lower extremity Orders: Vascular US lower extremity venous duplex right; Future Assessment & Plan Opioid dependence with opioid-induced disorder (CMS/HCC) (HCC): - Opioid dependence in remission, currently maintained on methadone 60 mg daily for over 4 years. No current use of Suboxone. Rare use of heroin reported. - [facility]iscussed [facility] as an available resource. Encouraged continued stabilization on methadone. Offered pain group and acupuncture as adjunctive support. No changes to methadone regimen. Cervical radiculopathy: - Ongoing cervical radicular pain contributing to chronic pain and functional limitation. - Referred to physiatry (back expert) for further evaluation and management. Offered case management support for transportation to appointments. Discussed non-opioid pain management options includinglidocaine patches, acupuncture, and medications such as gabapentin, pregabalin, duloxetine, and amitriptyline. Other insomnia: - Persistent insomnia reported, unchanged. Chronic hepatitis C without hepatic coma (HCC): - Prior hepatitis C exposure reported. Status unclear. - Ordered hepatitis C testing with routine labs to assess for active infection. Cigarette nicotine dependence with nicotine-induced disorder: - Ongoing cigarette use, reduced from prior levels. - Prescribed nicotine patches (21 mg) to support further reduction in smoking. Routine general medical examination at a health care facility: - General medical examination performed. - Scheduled follow-up in 3 months. Ordered routine laboratory tests including cholesterol, HIV, andhepatitis C. Encouraged check-out at [facility] to schedule follow-up and complete labs. Other migraine without status migrainosus, intractable: - Headaches reported, unclear if migrainous in nature. Lumbar radiculopathy: - Chronic lumbar radicular pain with significant functional impairment, requiring use of cane. - Referred to physiatry for further evaluation. Prescribed lidocaine patches for symptomatic relief. Discussed non-pharmacologic options including acupuncture and pain group. Offered case management for transportation assistance. Screening for colon cancer: - Screening indicated due to age and risk factors. - Ordered colon cancer screening (colonoscopy or fecal test). Patient consented to screening. Malignant neoplasm of colon, unspecified part of colon (CMS/HCC) (HCC): - No diagnosis of colon cancer at this time; screening ordered. Hypertension, unspecified type: - Elevated blood pressure noted. Prior antihypertensive use reported. - Prescribed olmesartan for blood pressure control. Advised to maintain adequate hydration. Will monitor for side effects such as orthostatic hypotension. - Risks and side effects: Discussed potential for lightheadedness upon standing with olmesartan. Colon cancer screening: - Screening indicated and ordered. - Ordered colon cancer screening. Patient consented. Dietary counseling: - Dietary habits discussed. - Recommended consumption of whole fruits and vegetables. Exercise counseling: - Physical activity discussed as part of pain management and overall health. - Encouraged movement as tolerated. Chronic pain (multifocal, including back, neck, and head): - Chronic, severe pain in back, neck, and head, multifactorial, with significant impact on mobilityand quality of life. Pain not adequately controlled with current therapies. - Prescribed lidocaine patches. Referred to physiatry for further evaluation. Discussed non-opioid pharmacologic options (gabapentin, pregabalin, duloxetine, amitriptyline). Offered acupuncture and pain group as adjunctive therapies. Offered case management for transportation support. Offered rollator or walker if needed. Cardiac symptoms (chest pain above heart): - Intermittent chest pain above heart, not clearly cardiac in origin but concerning given risk factors. - Referred to cardiology for stress test. Advised to seek emergency care if chest pain, lightheadedness, or dizziness develop. Cancer screening (lung): - Smoking history meets criteria for lung cancer screening. - Ordered low-dose CT scan for lung cancer screening. Patient consented. Eye care: - No current eye care provider. - Referred to eye sub acute care nurse. Prescription - Nicotine patch 21 mg daily - Lidocaine topical patches as needed for localized pain - Olmesartan daily (risk of orthostatic lightheadedness on standing) Appointments - Referral to physiatry at [facility] (patient to schedule upon contact) - Referral to ophthalmology - Referral to cardiology for stress test - Follow-up visit in 3 months Routine Screening and Health Maintenance Optometry: No Dental: Yes No visits with results within 3 Month(s) from this visit. Latest known visit with results is: [facility] Encounter on 09/18/2019 Component Date Value Ref Range Status HOLD GREEN 09/18/2019 SEE NOTE Final Comment: SPECIMEN HELD UNTESTED FOR 24 HOURS; CALL TO REQUEST CHEMISTRY TESTING. Routine Cancer Screening Colon CA: ordered Lung CA: low dose ct ordered PSA: ordered Current Medications[5] Immunization History Administered Date(s) Administered Influenza Injectable Quadrivalant Preservative Free IIV4 MDCK 03/18/2020 Influenza Quadrivalent Adjuvanted 05/27/2022, 04/13/2023 Influenza injectable quadrivalent preservative free 04/25/2019 Influenza, seasonal, injectable, preservative free 07/17/2012, 04/12/2017, 04/08/2018 Moderna Covid-19 Vaccine 12+ 10/30/2020, 11/28/2020, 06/05/2021, 04/13/2023 Moderna Covid-19 Vaccine 6+ Bivalent 05/27/2022 Pfizer Covid-19 Vaccine 12+ 03/08/2024, 03/13/2025 Pneumococcal Conjugate PCV 7 07/17/2012 Pneumococcal Polysaccharide PPSV23 12/18/2014, 12/19/2019 Tdap 01/05/2020 This note was drafted using Ambient (AI) technology. The patient/patient's guardian has been informed and has consented to the use of this technology: Yes Based on our discussion, I have outlined the following instructions for you: - Continue taking your methadone as you have been. - Use the nicotine patch (21 mg) daily to help reduce smoking. - Use lidocaine patches as needed for pain relief. - Consider joining a pain support group and trying acupuncture for additional help with pain. - Consider non-opioid medications for pain management such as gabapentin, pregabalin, duloxetine, or amitriptyline (these are alternatives to opioids for pain). - Ask for help with transportation to your medical appointments if needed. - Complete the colon cancer screening (colonoscopy or stool test) as ordered. - Complete the lung cancer screening (low-dose CT scan) as ordered. - Take olmesartan daily for blood pressure control. Be aware that it may cause lightheadedness whenstanding up, so stand up slowly and drink enough fluids. - Eat more whole fruits and vegetables. - Move and be physically active as much as you comfortably can. - If you experience chest pain, lightheadedness, or dizziness, seek emergency care right away. - If you need help walking, ask about getting a rollator or walker. - Get your routine blood tests done as ordered (cholesterol, HIV, hepatitis C). - Get your hepatitis C test done as ordered. Next appointment(s): - Referral to physiatry at [facility] (patient to schedule upon contact) - Referral to ophthalmology - Referral to cardiology for stress test - Follow-up visit in 3 months [1] Patient Active Problem List Diagnosis Backache Blood in urine Cervical radiculopathy Lumbar radiculopathy Congenital fusion of spine Chronic hepatitis C (CMS/HCC) (HCC) Hepatitis C Insomnia Migraine Migraine without aura, not refractory Nicotine dependence Opioid abuse (HCC) Opioid dependence (HCC) Back pain Left against medical advice Fracture of neck of humerus Diagnosis unknown Cerumen impaction Cellulitis Shingles Routine general medical examination at a health care facility Screening for colon cancer Colon cancer screening Hypertension [2] History reviewed. No pertinent surgical history. [3] No family history on file. [4] No Known Allergies [5] Current Outpatient Medications Medication Sig Dispense Refill lidocaine (Lidoderm) 5 % patch Apply 1 patch topically Once per day. Remove & discard patch within 12 hours or as directed by MD. 30 patch 1 nicotine (Nicoderm CQ) 21 MG/24HR patch Place 1 patch on the skin 1 (one) time each day at the sametime. 30 patch 2 olmesartan (Benicar) 20 MG tablet Take 1 tablet (20 mg) by mouth Once per day. 90 tablet 2 No current facility-administered medications for this visit. documented in this encounter Miscellaneous Notes * Assessment & Plan Note - Mayra Bagley NP - 06/13/2025 9:00 AM ESTAssociated Problem(s): Opioid dependence (HCC) * Assessment & Plan Note - Mayra Bagley NP - 06/13/2025 9:00 AM ESTAssociated Problem(s): Cervical radiculopathy * Assessment & Plan Note - Mayra Bagley NP - 06/13/2025 9:00 AM ESTAssociated Problem(s): Insomnia * Assessment & Plan Note - Mayra Bagley NP - 06/13/2025 9:00 AM ESTAssociated Problem(s): Hepatitis C * Assessment & Plan Note - Mayra Bagley NP - 06/13/2025 9:00 AM ESTAssociated Problem(s): Nicotine dependence Orders: CT Lung Screening Low dose; Future * Assessment & Plan Note - Mayra Bagley NP - 06/13/2025 9:00 AM ESTAssociated Problem(s): Routine general medical examination at a health care facility Orders: Lipid Panel, Standard; Future Comprehensive Metabolic Panel; Future Hemoglobin A1c; Future HIV-1/2 Antigen and Antibodies, Fourth Generation, with Reflexes; Future Hepatitis C Antibody with Reflex to HCV, RNA, Quantitative, Real-Time PCR; Future Referral to [facility] Adult; Future * Assessment & Plan Note - Mayra Bagley NP - 06/13/2025 9:00 AM ESTAssociated Problem(s): Migraine * Assessment & Plan Note - Mayra Bagley NP - 06/13/2025 9:00 AM ESTAssociated Problem(s): Lumbar radiculopathy Orders: Referral to Physiatry; Future lidocaine (Lidoderm) 5 % patch; Apply 1 patch topically Once per day. Remove & discard patch within 12 hours or as directed by . * Assessment & Plan Note - Mayra Bagley NP - 06/13/2025 9:00 AM ESTAssociated Problem(s): Screening for colon cancer Orders: Cologuard?? colon cancer screening * Assessment & Plan Note - Mayra Bagley NP - 06/13/2025 9:00 AM ESTAssociated Problem(s): Colon cancer screening Orders: PSA, Screen; Future * Assessment & Plan Note - Mayra Bagley NP - 06/13/2025 9:00 AM ESTAssociated Problem(s): Hypertension Orders: Referral to Cardiology; Future * Assessment & Plan Note - Mayra Bagley NP - 06/13/2025 9:00 AM ESTAssociated Problem(s): Colon cancer screening documented in this encounter Plan of Treatment Upcoming Encounters Date Type Department Care Team (Late st Contact Info) Description 09/11/2025 2:30 PM EDT Office Visit [facility] [address] [place] [address] Mayra Bagley NP [address] [place] [address] Scheduled Orders Name Type Priority Associated Diagnoses Orde r Schedule Lipid Panel, Standard Lab Routine Routine general medical examination at a health care facility Expected: 06/13/2025 (Approximate), Expires: 06/13/2026 Comprehensive Metabolic Panel Lab Routine Routine general medical examination at a health care facility Expected: 06/13/2025 (Approximate), Expires: 06/13/2026 Hemoglobin A1c Lab Routine Routine general medical examination at a health care facility Expected: 06/13/2025 (Approximate), Expires: 06/13/2026 HIV-1/2 Antigen and Antibodies, Fourth Generation, with Reflexes Lab Routine Routine general medical examination at a health care facility Expected: 06/13/2025 (Approximate), Expires: 06/13/2026 Hepatitis C Antibody with Reflex to HCV, RNA, Quantitative, Real-Time PCR Lab Routine Routine general medical examination at a health care facility Expected: 06/13/2025, Expires: 06/13/2026 CT Lung Screening Low dose Imaging Routine Cigarette nicotine dependence with nicotine-induced disorder Expected: 06/13/2025, Expires: 06/13/2026 Cologuard colon cancer screening Lab Routine Screening for colon cancer Ordered: 06/13/2025 PSA, Screen Lab Routine Malignant neoplasm of colon, unspecified part of colon (CMS/HCC) (HCC) Expected: 06/13/2025 (Approximate), Expires: 06/13/2026 Scheduled Referrals Name Type Priority Associated Diagnoses Orde r Schedule Referral to Physiatry Outpatient Referral Routine Lumbar radiculopathy Expected: 06/13/2025 (Approximate), Expires: 06/13/2026 Referral to [facility] Dental Adult Outpatient Referral Routine Routine general medical examination at a health care facility Expected: 06/13/2025 (Approximate), Expires: 06/13/2026 Referral to Cardiology Outpatient Referral Urgent Hypertension, unspecified type Expected: 06/13/2025 (Approximate), Expires: 06/13/2026 documented as of this encounter Visit Diagnoses Diagnosis Opioid dependence with opioid-induced disorder (CMS/HCC) (HCC)- Primary Cervical radiculopathy Brachial neuritis or radiculitis nos Other insomnia Chronic hepatitis C without hepatic coma (HCC) Cigarette nicotine dependence with nicotine-induced disorder Routine general medical examination at a health care facility Other migraine without status migrainosus, intractable Lumbar radiculopathy Thoracic or lumbosacral neuritis or radiculitis, unspecified Screening for colon cancer Special screening for malignant neoplasms, colon Malignant neoplasm of colon, unspecified part of colon (CMS/HCC) (HCC) Hypertension, unspecified type Colon cancer screening Special screening for malignant neoplasms, colon Dietary counseling Dietary surveillance and counseling Exercise counseling Edema of right lower extremity documented in this encounter Additional Health Concerns Assessment Noted Time PHQ-9 Depression Total Score: 7 06/13/20 25 9:19 AM EST documented as of this encounter Care Teams Professor Of Voice Relationship Specialty Start Date End Date Mayra Bagley NP [address] [place] [address] PCP - General Family Medicine 06/13/25 documented as of this encounter
--- OUTSIDE RECORDS SUMMARY | 2025-06-13 12:48 | XMS_ITS | Encounter Summary ---
Author Organization [employer] Address [address] [facility] 7t [place] [address] Care Team Providers Care Concrete Tester Name Role Phone Mayra Bagley NP Primary Care Provider [phone] Encounter Details Date Type Department Care Team ([facility] st Contact Info) Description 06/13/2025 Results Follow-Up [facility] [address] [place], [place] [phone] Mayra Bagley NP [address] [place] [address] US VENOUS DUPLEX LE RT Social History Tobacco Use Types Packs/Day Years [...] AM EST documented as of this encounter Functional Status * Over the [...] Betancur [place] documented as of this encounter Miscellaneous Notes * Result Encounter Note - Mayra Bagley NP - 06/13/2025 11:55 AM EST Please let pt know no dvt documented in this encounter Plan of Treatment Upcoming Encounters Date Type Department Care Team (Late st Contact Info) Description 09/11/2025 2:30 PM EDT Office Visit [facility] [address] [place] [address] Mayra Bagley NP [address] [place] [address] documented as of this encounter Visit Diagnoses Not on filedocumented in this encounter Additional Health Concerns Assessment Noted Time PHQ-9 Depression Total Score: 7 06/13/20 9:19 AM EST documented as of this encounter Care Teams Concrete Tester Relationship Specialty Start Date End Date Mayra Bagley NP [address] [place] [address] PCP - General Family Medicine 06/13/25 documented as of this encounter
--- OUTSIDE RECORDS SUMMARY | 2025-06-13 12:48 | XMS_ITS | Encounter Summary ---
Author Organization [employer] Address [address] [facility] 7t [place] [address] Care Team Providers Care Fat Purification Worker Name Role Phone Unavailable Primary Care Provider Unavailabl e Reason for Visit * Reason Onset Date Comments Chart Prep 06/12/2025 Encounter Details Date Type Department Care Team ([facility] st Contact Info) Description 06/12/2025 Telephone [facility] [address] [place], [place] [phone] Mayra Bagley NP [address] [place] [address] Chart Prep Social History Tobacco Use Types Packs/Day Years [...] AM EST documented as of this encounter Miscellaneous Notes * Telephone Encounter - Ddiier Mejía [place] - 06/12/2025 1:55 PM EST Chart Prep Labs: not applicable Images: not applicable Referrals: not applicable Vaccines due: Covid, Flu, PCV20, Hep B, Hep A, RSV, and Zoster Screenings: colonoscopyAlcohol/Substance Use Screening Overdue care gaps: SBIRT, SDOH, PHQ-9, JOSELUIS-7, Oral health screening, and Tobacco documented in this encounter Plan of Treatment Upcoming Encounters Date Type Department Care Team (Late st Contact Info) Description 09/11/2025 2:30 PM EDT Office Visit [facility] [address] [place] [address] Mayra Bagley NP [address] [place] [address] documented as of this encounter Visit Diagnoses Not on filedocumented in this encounter
--- OUTSIDE RECORDS SUMMARY | 2025-06-13 12:48 | XMS_ITS | Encounter Summary ---
Author Organization [employer] Address [address] [facility] [address]t [place] [address] Care Team Providers Care Oxygen Equipment Aide Name Role Phone Mayra Bagley NP Primary Care Provider [phone] Encounter Details Date Type Department Care Team ([facility] st Contact Info) Description 06/13/2025 Orders Only [facility] MED[facility]INE [address] [place], [place] [phone] Mayra Bagley NP [address] [place], [place] [phone] Social History Tobacco Use Types Packs/Day Years [...] Betancur [place] documented as of this encounter Plan of Treatment Upcoming Encounters Date Type Department Care Team (Late st Contact Info) Description 09/11/2025 2:30 PM EDT Office Visit [facility] [address] [place], [place] [phone] Mayra Bagley NP [address] [place] [address] documented as of this encounter Procedures Procedure Name Priority Date/Time Associated Diagnosis Comments US VENOUS DUPLEX LE RT Routine 06/13/2025 11:18 AM EST documented in this encounter Results * US VENOUS DUPLEX LE RT (06/13/2025 11:18 AM EST) Anatomical Region Laterality Modality Abdomen Ultrasound 06/13/2025 11:1 8 AM EST Narrative 06/13/2025 11:43 AM EST [facility] [address] [place] [address] Ultrasound Report Signed Patient: Charles Corral MR#: [id number] : 1955 Acct:[id number] Age/Sex: 70 / M ADM Date: 06/13/25 Loc: HO.US Attending Dr: Mayra Bagley NP Ordering Physician: Mayra Bagley NP Date of Service: 06/13/25 Procedure(s): US venous duplex LE RT Accession Number(s): [id number] cc: Mayra Bagley NP Reason for Exam: RLE edema; r/o DVT EXAMINATION: US TRIPLEX LOWER EXTREMITY, RIGHT CLINICAL INFORMATION: Right lower extremity edema. COMPARISON: 08/08/24. TECHNIQUE: Color-flow triplex imaging with spectral analysis and compression Doppler were performed on the right lower extremity. FINDINGS: Respiratory variation, normal compression and augmented flow are noted throughout the right lower extremity. The visualized common femoral vein, superficial femoral vein, profunda femoral vein, popliteal vein and midcalf posterior tibial venous segments show no evidence of deep venous thrombosis. The right peroneal vein could not be well seen. There is no Figueroa's cyst. US/US venous duplex LE RT IMPRESSION: No evidence of deep venous thrombosis involving the right lower extremity. Electronically signed by: Jovan Braun MD 06/13/2025 11:40 AM EST RP Dictated By: Jovan Braun MD Signed By: <Electronically signed by Jovan Braun MD in OV> 06/13/25 1140 DD/ 1118 TD/TT: 06/13/25 1125 Vendor Representatives: Procedure Note Donotuseinterpreter, Image - 06/13/2025 [place] [address] Ultrasound Report Signed Patient: Ricco Corral#: [id number] : 1955cct:[id number] Age/Sex: 70 / MADM Date: 06/13/25 Loc: .US Attending Dr: Mayra Bagley NP Ordering Physician: Mayra Bagley NP Date of Service: 06/13/25 Procedure(s): US venous duplex LE RT Accession Number(s): [id number] cc: Mayra Bagley NP Reason for Exam: RLE edema; r/o DVT EXAMINATION: US TRIPLEX LOWER EXTREMITY, RIGHT CLINICAL INFORMATION: Right lower extremity edema. COMPARISON: 08/08/24. TECHNIQUE: Color-flow triplex imaging with spectral analysis and compression Doppler were performed on the right lower extremity. FINDINGS: Respiratory variation, normal compression and augmented flow are noted throughout the right lower extremity. The visualized common femoral vein, superficial femoral vein, profunda femoral vein, popliteal vein and midcalf posterior tibial venous segments show no evidence of deep venous thrombosis. The right peroneal vein could not be well seen. There is no Figueroa's cyst. US/US venous duplex LE RT IMPRESSION: No evidence of deep venous thrombosis involving the right lower extremity. Electronically signed by: Jovan Braun MD 06/13/2025 11:40 AM EST RP Dictated By: Jovan Braun MD Signed By: <Electronically signed by Jovan Braun MD in OV> 06/13/25 1140 DD/ 1118 TD/TT: 06/13/25 1125 Vendor Representatives: us Mayra Graef AUTHORIZATION SPECIALIST IMG US PROCEDURES Final Result documented in this encounter Visit Diagnoses Not on filedocumented in this encounter Additional Health Concerns Assessment Noted Time PHQ-9 Depression Total Score: 7 06/13/20 9:19 AM EST documented as of this encounter Care Teams Oxygen Equipment Aide Relationship Specialty Start Date End Date Mayra Bagley NP [address] [place] [address] PCP - General Family Medicine 06/13/25 documented as of this encounter
--- OUTSIDE RECORDS SUMMARY | 2025-06-13 12:49 | XMS_ITS | Encounter Summary ---
Author Organization [employer] Address [address] [facility] 7t [place] [address] Care Team Providers Care Machinery Erector Name Role Phone Mayra Bagley FRANSICO Primary Care Provider [phone] Encounter Details Date Type Department Care Team (Latest Contact Info) Description 06/13/2025 Travel Social History Tobacco Use Types Packs/Day Years [...] Description 09/11/2025 2:30 PM EDT Office Visit [facility] [address] [place] [address] Mayra Bagley NP [address] [place] [address] documented as of this encounter Visit Diagnoses Not on filedocumented in this encounter Additional Health Concerns Assessment Noted Time PHQ-9 Depression Total Score: 7 06/13/20 9:19 AM EST documented as of this encounter Care Teams Machinery Erector Relationship Specialty Start Date End Date Mayra Bagley NP [address] [place] [address] PCP - General Family Medicine 06/13/25 documented as of this encounter
--- OUTSIDE RECORDS SUMMARY | 2025-06-13 12:49 | XMS_ITS | Clinical Summary ---
Author Organization [employer] Address [address] [facility] [address]t [place] [address] Care Team Providers Care Assistant Restaurant General Manager Name Role Phone JannetteMayra colvin FRANSICO Primary Care Provider [phone] Allergies No known active allergies Medications nicotine (Nicoderm CQ) 21 MG/24HR patch Place 1 patch on the skin 1 (one) time each day at the same time. 30 patch 2 5 07/13/19 26 Active lidocaine (Lidoderm) 5 % patchIndications:L umbar radiculopathy Apply 1 patch topically Once per day. Remove & discard patch within 12 hours or as directed by MD. 30 patch 1 5 Active olmesartan (Benicar) 20 MG tablet Take 1 tablet (20 mg) by mouth Once per day. 90 tablet 2 5 06/13/20 26 Active Active Problems Problem Noted Date Diagnosed Date Routine general medical exam ination at a health care facility 06/13/2025 Assessment & Plan (06/13/2025 11:56 AM EST): Orders: Lipid Panel, Standard; Future Comprehensive Metabolic Panel; Future Hemoglobin A1c; Future HIV-1/2 Antigen and Antibodies, Fourth Generation, with Reflexes; Future Hepatitis C Antibody with Reflex to HCV, RNA, Quantitative, Real-Time PCR; Future Referral to [facility] Adult; Future Screening for colon cancer 06/13/2025 Assessment & Plan (06/13/2025 11:56 AM EST): Orders: Cologuard colon cancer screening Colon cancer screening 06/13/2025 Assessment & Plan (06/13/2025 11:56 AM EST): Assessment & Plan (06/13/2025 11:56 AM EST): Orders: PSA, Screen; Future Hypertension 06/13/2025 Assessment & Plan (06/13/2025 11:56 AM EST): Orders: Referral to Cardiology; Future Back pain 06/12/2025 Left against medical advice 06/12/2025 Fracture of neck of humerus 06/12/2025 Diagnosis unknown 06/12/2025 Cerumen impaction 06/12/2025 Cellulitis 06/12/2025 Shingles 06/12/2025 Chronic hepatitis C (CMS/HCC) 04/20/2018 Opioid dependence 04/20/2018 Overview (06/13/2025): Methadone 60 mg Assessment & Plan (06/13/2025 11:56 AM EST): Cervical radiculopathy 01/12/2018 Assessment & Plan (06/13/2025 11:56 AM EST): Lumbar radiculopathy 01/12/2018 Assessment & Plan (06/13/2025 11:56 AM EST): Orders: Referral to Physiatry; Future lidocaine (Lidoderm) 5 % patch; Apply 1 patch topically Once per day. Remove & discard patch within 12 hours or as directed by . 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 Hepatitis C 08/10/2012 Assessment & Plan (06/13/2025 11:56 AM EST): Migraine 08/10/2012 Assessment & Plan (06/13/2025 11:56 AM EST): Opioid abuse 08/10/2012 Encounters Date Type Department Care Team Description 06/13/2025 9:00 AM EST Office Visit [address] [address] Mayra Bagley NP Opioid dependence with opioid-induced disorder (CMS/HCC) (HCC) [...] Exercise counseling; Edema of right lower extremity 06/13/2025 Results Follow-Up [address] [address] Mayra Bagley NP US VENOUS DUPLEX LE RT 06/13/2025 Orders Only [address] [address] Mayra Bagley NP 06/13/2025 Travel 06/12/[address] [address] Mayra Bagley NP Chart Prep 06/05/2025 Patient Outreach [address] [address] Mayra Bagley NP Pre-visit Planning (Pre-visit planning - LVM ) 04/12/[address] [address] Manoj Poe MD Appointment Request from Last 3 Months Immunizations Immunization Administration Dates Next Due Influenza Injectable Quadriv alant Preservative Free IIV4 MDCK 03/18/2020 Influenza Quadrivalent Adjuvanted 04/13/2023, Influenza injectable quadriv alent preservative free 04/25/2019 Influenza, seasonal, injecta ble, preservative free 04/08/2018,04/12/2017,07/17/2012 Moderna Covid-19 Vaccine 12+ 04/13/2023, 06/05/2021,11/28/2020,10/30 Moderna Covid-19 Vaccine 6+ Bivalent 05/27/2022 Pneumococcal Conjugate PCV 7 07/17/2012 Pneumococcal Polysaccharide PPSV23 12/19/2019, Tdap 01/05/2020 Social History Tobacco Use Types Packs/Day Years [...] Orientation Straight 05/31/2025 9: 48 AM EST Last Filed Vital Signs Vital Sign Reading [...] Mass Index 25.55 06/13/2025 9:17 AM EST Plan of Treatment Upcoming Encounters Date Type Department Care Team (Late st Contact Info) Description 09/11/2025 2:30 PM EDT Office Visit [facility] MED[facility]INE [address] [place] [address] Mayra Bagley NP [address] [place] [address] Health Maintenance Due Date Last Done Comments CT Colonography 1955 Colonoscopy 1955 Colorectal Cancer Screening 1955 FIT DNA/Cologuard 1955 FIT 1955 FOBT 1955 Lipid Panel 1955 SDOH Screening 1955 Sigmoidoscopy 1955 Tobacco Screening 1965 Hepatitis A Vaccines (1 of 2 - Risk 2-dose series) 1972 RSV Patients and Patients Aged 60 years or older (1 - Risk 50-74 years 1-dose series) 2003 Zoster Vaccines (1 of 2) 2003 Hepatitis B Vaccines (1 of 3 - Risk 3-dose series) 2013 Pneumococcal Vaccine: 50+ Years (2 of 2 - PCV) 12/18/2020 12/19/2019, 12/18/2014, 07/17/2012 COVID-19 Vaccine ( season) 2025 03/13/2025, 03/08/2024, 04/13/2023, Additional history exists Alcohol/Substance Use Screening 06/13/2026 06/13/2025 Depression Screening 06/13/2026 06/13/2025, 06/13/20 DTaP/Tdap/Td Vaccines (2 - Td or Tdap) 01/04/2030 01/05/2020 Influenza Vaccine Completed 03/13/2025, , 04/13/2023, Additional history exists HIB Vaccines Aged Out No longer eligi ble based on patient's age to complete this topic HPV Vaccines Aged Out No longer eligi ble based on patient's age to complete this topic IPV Vaccines Aged Out No longer eligi ble based on patient's age to complete this topic Meningococcal B Vaccine Aged Out No l onger eligible based on patient's age to complete this topic Meningococcal Vaccine Aged Out No colleen jenny eligible based on patient's age to complete this topic RSV under 20 months Aged Out No longe r eligible based on patient's age to complete this topic Rotavirus Vaccines Aged Out No longer eligible based on patient's age to complete this topic Procedures Procedure Name Priority Date/Time Associated Diagnosis Comments US VENOUS DUPLEX LE RT Routine 06/13/2025 11:18 AM EST from Last 3 Months Results * US VENOUS DUPLEX LE RT (06/13/2025 11:18 AM EST) Anatomical Region Laterality Modality Abdomen Ultrasound 06/13/2025 11:1 8 AM EST Narrative 06/13/2025 11:43 AM EST [place] [address] Ultrasound Report Signed Patient: Charles Corral MR#: [id number] : 1955 Acct:[id number] Age/Sex: 70 / M ADM Date: 06/13/25 Loc: HO.US Attending Dr: Mayra Bagley JACKHAMMER SPLITTER OPERATOR Ordering Physician: Mayra Bagley NP Date of Service: 06/13/25 Procedure(s): US venous duplex LE RT Accession Number(s): [id number] cc: Mayra Bagley NP Reason for Exam: [...] by: Jovan Braun MD 06/13/2025 11:40 AM [facility] Dictated By: Jovan Braun MD Signed By: <Electronically signed by Jovan Braun MD in OV> 06/13/25 1140 DD/ 1118 TD/TT: 06/13/25 1125 Senior Ui Web Developer: Procedure Note Donotuseinterpreter, Image - 06/13/2025 [place] [address] Ultrasound Report Signed Patient: Ricco Corral#: [id number] : 1955cct:[id number] Age/Sex: 70 / MADM Date: 06/13/25 Loc: HO.US Attending Dr: Mayra Bagley JACKHAMMER SPLITTER OPERATOR Ordering Physician: Mayra Bagley NP Date of Service: 06/13/25 Procedure(s): US venous duplex LE RT Accession Number(s): [id number] cc: Mayra Bagley NP Reason for Exam: [...] by: Jovan Braun MD 06/13/2025 11:40 AM [facility] Dictated By: Jovan Braun MD Signed By: <Electronically signed by Jovan Braun MD in OV> 06/13/25 1140 DD/ 1118 TD/TT: 06/13/25 1125 Senior Ui Web Developer: Mayra Bagley NP IMG US PROCEDURES Final Result from Last [address] [facility] STANDARD MEDICARE Care Teams Assistant Restaurant General Manager Relationship Specialty Start Date End Date Mayra Bagley NP [address] [place] [phone] PCP - General Family Medicine 06/13/25
== END 2025-06-13 10:23 | disposition home or self-care (01) ==
LOC: HO.US 10:22
PROVIDERS: PCP Nurse Practitioner Family; Visit Provider Nurse Practitioner Family
DX: R60.0 Localized edema (principal)
CPT/HCPCS: 93971

== ENCOUNTER → 2025-06-13 11:18 | Outpatient (BNV) | payer MEDICARE, MEDICAID, SELFPAY | PROVIDERS: PCP Nurse Practitioner Family; Visit Provider Radiology Diagnostic Radiology | DX: R60.0 Localized edema (principal) | CPT/HCPCS: 93971 ==